=== PATIENT | male | born 1990 | race African-American/Black ===

== ENCOUNTER 2016-10-03 12:46 | Emergency (ER) | payer SELFPAY ==
--- NOTE | 2016-10-03 13:53 | ER Document Report ---
ED Medical Screen (RME) - General Chief Complaint: Numbness of Face Stated Complaint: RIGHT SIDE FACIAL NUMBNESS Time Seen by Provider: 10/03/16 13:47 Notes: Patient noted that his right face was drooping and not working yesterday after brushing his teeth. He felt that it was due to p.m. jamming the toothbrush into the sulcus between the right upper lip and maxillary region of his face. Has not been sick recently. No fevers. No insect or tick bites. Denies headache. Patient has a history of hypertension, but not currently on any medications. TRAVEL OUTSIDE OF THE [place] IN LAST 30 DAYS: No - Related Data Allergies/Adverse Reactions: shrimp Allergy (Verified 10/03/16 13:02) Past Medical History - Social History Chew tobacco use (# tins/day): No Frequency of alcohol use: Rare Drug Abuse: None Renal/ Medical History: Denies: Hx Peritoneal Dialysis Surgical Hx: Negative - Immunizations Hx Diphtheria, Pertussis, Tetanus Vaccination: No Physical Exam - Vital signs Vitals: Temp Pulse Resp BP Pulse Ox 98.1 F 100 18 207/119 H 97 10/03/16 13:03 10/03/16 13:03 10/03/16 13:03 10/03/16 13:03 10/03/16 13:03 Course - Vital Signs Vital signs: Temp Pulse Resp BP Pulse Ox 98.1 F 90 18 218/134 H 98 10/03/16 13:03 10/03/16 13:48 10/03/16 13:48 10/03/16 13:48 10/03/16 13:48
[2016-10-03] MEDS ORDERED: CLONIDINE HCL 0.2 MG TABLET PO ONE (13:54)
[2016-10-03 14:30] LABS: ABSOLUTE EOSINOPHILS # (AUTO) 0.1 10^3/uL (0.0-0.6); ABSOLUTE LYMPHOCYTES (AUTO) 1.7 10^3/uL (0.5-4.7); ABSOLUTE MONOCYTES (AUTO) 0.8 10^3/uL (0.1-1.4); ABSOLUTE NEUT (AUTO) 6.6 10^3/uL (1.7-8.2); BASOPHILS % (AUTO) 0.4 % (0-2); EOSINOPHILS % (AUTO) 1.4 % (0-6); HEMATOCRIT 40.4 % (37.9-51.0); HEMOGLOBIN 12.7 g/dL (13.5-17.0); HGB HCT DIFFERENCE -2.3; LYMPHOCYTES % (AUTO) 18.7 % (13-45); MEAN CORPUSCULAR HEMOGLOBIN 26.3 pg (27.0-33.4); MEAN CORPUSCULAR HGB CONC 31.4 g/dL (32.0-36.0); MEAN CORPUSCULAR VOLUME 84 fl (80-97); MONOCYTES % (AUTO) 8.2 % (3-13); RED BLOOD COUNT 4.83 10^6/uL (4.35-5.55); RED CELL DISTRIBUTION WIDTH 13.7 % (11.5-14.0); SEGMENTED NEUTROPHILS % (AUTO) 71.3 % (42-78); WHITE BLOOD COUNT 9.2 10^3/uL (4.0-10.5)
--- NOTE | 2016-10-03 14:43 | RADIOLOGY REPORT (SQ) ---
EXAM DESCRIPTION: CT HEAD WITHOUT COMPLETED DATE/TIME: 10/03/2016 2:20 pm REASON FOR STUDY: Right Facial paralysis COMPARISON: None. TECHNIQUE: Axial images acquired through the brain without intravenous contrast. Images reviewed wi th bone, brain and subdural windows. Images stored on PACS. All CT scanners at this facility use dose modulation, iterative reconstruction, and/or weight based d osing when appropriate to reduce radiation dose to as low as reasonably achievable (ALARA). [facility]: Dose Right [facility]: CareDose [facility]: Dose Right [facility]: Teradose 4D [facility]: [employer] RADIATION DOSE: 64.61 mGy. LIMITATIONS: None. FINDINGS: VENTRICLES: Normal size and contour. CEREBRUM: No masses. No hemorrhage. No midline shift. Normal jj/white matter differentiation. N o evidence for acute infarction. CEREBELLUM: No masses. No hemorrhage. No alteration of density. No evidence for acute infarction. EXTRAAXIAL SPACES: No fluid collections. No masses. ORBITS AND GLOBE: No intra- or extraconal masses. Normal contour of globe without masses. CALVARIUM: No fracture. PARANASAL SINUSES: There is mild mucoperiosteal thickening in the left maxillary sinus. SOFT TISSUES: No mass or hematoma. OTHER: In the temporal bone, the external auditory canals are narrow bilaterally. No specific abnorm ality involving the facial nerve canal is identified. IMPRESSION: 1. Mild left maxillary sinus disease with no acute intracranial pathology. 2. The external auditory canals are narrow. 3. No abnormality of the facial nerve canal is identified. TECHNICAL DOCUMENTATION: JOB ID: [id number] Quality ID # [id number]: Final reports with documentation of one or more dose reduction techniques (e.g., Au tomated exposure control, adjustment of the mA and/or kV according to patient size, use of iterative reconstruction technique) 2010 [employer]- All Rights Reserved
--- NOTE | 2016-10-03 14:55 | ER Document Report ---
ED General - General Chief Complaint: Numbness of Face Stated Complaint: RIGHT SIDE FACIAL NUMBNESS Time Seen by Provider: 10/03/16 13:47 Mode of Arrival: Ambulatory Information source: Patient Notes: 26-year-old man who presents to the emergency room with 2 days history of right facial weakness and numbness. Patient noticed the symptoms on waking 6 AM yesterday. Patient denies arm or leg weakness. He denies headache. He denies fever or chills. TRAVEL OUTSIDE OF THE [place] IN LAST 30 DAYS: No - HPI Onset: Yesterday Onset/Duration: Gradual Quality of pain: No pain Severity: None Pain Level: Denies Associated symptoms: denies: Chest pain, Fever, Shortness of breath Exacerbated by: Denies Relieved by: Denies Similar symptoms previously: No Recently seen / treated by doctor: No - Related Data Allergies/Adverse Reactions: shrimp Allergy (Verified 10/03/16 13:02) Past Medical History - General Information source: Patient - Social History Smoking Status: Never Smoker Cigarette use (# per day): No Chew tobacco use (# tins/day): No Frequency of alcohol use: Rare Drug Abuse: None Lives with: Family Family History: Reviewed & Not Pertinent Patient has suicidal ideation: No Patient has homicidal ideation: No - Past Medical History Cardiac Medical History: Reports: Hx Hypertension Renal/ Medical History: Denies: Hx Peritoneal Dialysis Surgical Hx: Negative - Immunizations Hx Diphtheria, Pertussis, Tetanus Vaccination: No Review of Systems - Review of Systems Constitutional: denies: Chills, Fever EENT: No symptoms reported Cardiovascular: No symptoms reported Respiratory: No symptoms reported Gastrointestinal: No symptoms reported Genitourinary: No symptoms reported Male Genitourinary: No symptoms reported Musculoskeletal: No symptoms reported Skin: No symptoms reported Hematologic/Lymphatic: No symptoms reported Neurological/Psychological: See HPI Physical Exam - Vital signs Vitals: Temp Pulse Resp BP Pulse Ox 98.1 F 100 18 207/119 H 97 10/03/16 13:03 10/03/16 13:03 10/03/16 13:03 10/03/16 13:03 10/03/16 13:03 Notes: Physical exam: GENERAL: 26-year-old man, no acute distress. HEAD: Atraumatic, normocephalic. EYES: Pupils equal round and reactive to light, extraocular movements intact, sclera anicteric, conjunctiva are normal. ENT: TMs normal, nares patent, oropharynx clear without exudates. Moist mucous membranes. NECK: Normal range of motion, supple without lymphadenopathy or JVD. LUNGS: Breath sounds clear to auscultation bilaterally and equal. No wheezes rales or rhonchi. HEART: Regular rate and rhythm without murmurs, rubs or gallops. ABDOMEN: Soft, normoactive bowel sounds. No tenderness to palpation. No guarding, no rebound. No masses appreciated. EXTREMITIES: Normal range of motion, no pitting or edema. No clubbing or cyanosis. NEUROLOGICAL: Cranial nerves: Patient has weakness and numbness to the right side of the face. No other obvious cranial nerve dysfunction. Motor 5/5, sensory grossly intact, cerebellar finger to nose good, reflexes symmetrical. Normal speech, normal gait. PSYCH: Normal mood, normal affect. SKIN: Warm, Dry, normal turgor, no rashes or lesions noted. Course - Re-evaluation Re-evalutation: Note: Patient is been comfortable. 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 Given his marked elevation in blood pressure, MRI was performed to rule out the possibility of stroke. No stroke was identified. The plan will be to treat both the Lemons's palsy and the patient's blood pressure. Patient is referred to [facility]. 10/03/16 19:15 - Vital Signs Vital signs: Temp Pulse Resp BP Pulse Ox 98.0 F 75 18 162/108 H 99 10/03/16 19:04 10/03/16 19:04 10/03/16 19:04 10/03/16 19:04 10/03/16 19:04 - Laboratory Result Diagrams: 10/03/16 14:11 10/03/16 14:11 Laboratory results interpreted by me: 10/03/16 10/03/16 14:11 14:11 Hgb 12.7 L MCH 26.3 L MCHC 31.4 L ESR 26 H BUN 21 H Creatinine 1.45 H Est GFR (Non-Af Amer) 58 L Glucose 118 H Total Protein 8.8 H - Diagnostic Test Radiology reviewed: Image reviewed, Reports reviewed - MRI shows no evidence of stroke Discharge - Discharge Clinical Impression: Lemons's palsy, Hypertension Condition: Stable Disposition: HOME, SELF-CARE Instructions: Lemons's Palsy ([facility]) Additional Instructions: Recommendations: As we discussed, the MRI does not show any evidence of stroke. His symptoms Consistent with Lemons's palsy: See the information sheet on Lemons's palsy. Sometimes, antiviral treatment is beneficial, so I have written a prescription for acyclovir 5 times daily for the next week. This can be expensive. Get some eye irritation at the Pharmacy because the plan to corneal abrasions and dry. As you elevated blood pressure: You do need to be on blood pressure medicine for the high blood pressure. I have written a prescription for lisinopril and hydrochlorothiazide. This medicine is on the $4 list at [facility]. It is important to follow-up with a primary care doctor to see if you are tolerating this blood pressure medicine. I have given you the number of [facility] which is a free clinic. Many other doctors at this hospital are clear. Return to the emergency room for any concerns or to getting worse. Prescriptions: Acyclovir 800 mg PO 5XD #35 tablet Lisinopril/Hydrochlorothiazide [Lisinopril-Hctz 10-12.5 mg Tab] 1 each PO DAILY #30 tablet Forms: Elevated Blood Pressure
[2016-10-03 14:59] LABS: ALANINE AMINOTRANSFERASE 30 U/L (21-72); ALBUMIN 4.4 g/dL (3.5-5.0); ALKALINE PHOSPHATASE 116 U/L (38-126); ANION GAP 13 (5-19); ASPARTATE AMINO TRANSFERASE 42 U/L (17-59); BILIRUBIN,DIRECT 0.4 mg/dL (0.0-0.4); BILIRUBIN,TOTAL 0.6 mg/dL (0.2-1.3); BLOOD UREA NITROGEN 21 mg/dL (7-20); CALCIUM 9.8 mg/dL (8.4-10.2); CARBON DIOXIDE 29 mmol/L (22-30); CHLORIDE 101 mmol/L (98-107); CREATININE RESULT 1.45 mg/dL (0.52-1.25); GLUCOSE 118 mg/dL (75-110); SODIUM 142.5 mmol/L (137-145); TOTAL PROTEIN 8.8 g/dL (6.3-8.2)
[2016-10-03 15:13] LABS: ERYTHROCYTE SEDIMENTATION RATE 26 mm/hr (0-15)
--- NOTE | 2016-10-03 18:06 | RADIOLOGY REPORT (SQ) ---
EXAM DESCRIPTION: MRI HEAD COMBO COMPLETED DATE/TIME: 10/03/2016 5:34 pm REASON FOR STUDY: right facial weakness COMPARISON: Brain CT scan dated 10/03/2016 TECHNIQUE: Multiplanar imaging includes noncontrasted T1, T2, FLAIR, diffusion with ADC map and post gadolinium contrast T1 sequences. Images stored on PACS. CONTRAST TYPE AND DOSE: 20 mL MultiHance RENAL FUNCTION: GFR > 60. LIMITATIONS: None. FINDINGS: ANATOMY: No anomalies. Normal vascular flow voids. Pituitary fossa normal. CSF SPACES: Normal in size and contour. No hemorrhage. CEREBRUM: Sulci and gyri normal in size and contour. There is a single focus of abnormal signal inte nsity in the periventricular white matter on the FLAIR sequence in the right parietal region. The po ssibility of a demyelinating process cannot be excluded. No evidence of hemorrhage, mass, or extraaxi al fluid collection. No abnormal enhancement post contrast. POSTERIOR FOSSA: No signal alteration. No hemorrhage. No edema, masses, or mass effect. Internal sky tory canals, cerebellopontine angles, mastoids normal. No enhancing lesions. No abnormal enhancement post contrast. DIFFUSION IMAGING: Negative for acute or subacute infarction. ORBITS: No masses. Globes normal. PARANASAL SINUSES: Mucosal thickening is identified in the left maxillary antra. OTHER: No other significant finding. IMPRESSION: There is a single focus of abnormal signal intensity in the periventricular white matter on the FLAIR sequence and right parietal region as noted above. The possibility of a demyelinating process cannot be excluded. No other significant intracranial abnormalities were identified. Other findings as noted above TECHNICAL DOCUMENTATION: JOB ID: [id number]- All Rights Reserved
[2016-10-03 19:05] VITALS: BP 162/108
[2016-10-09 07:05] LABS: LYME DISEASE IGG AND IGM AB <0.91 ISR (0.00-0.90)
== END 2016-10-03 19:10 | disposition home or self-care (01) ==
LOC: ER 12:46
DX: G51.0 Bell's palsy (principal); R20.0 Anesthesia of skin; I10 Essential (primary) hypertension; Z91.013 Allergy to seafood
CPT/HCPCS: 99284; 36415; 85025; 85652; 80053; 86618 ×2; 86617 ×2; 70553; 70450; A9577

== ENCOUNTER 2018-03-21 10:02 | Inpatient (IN) | payer SELFPAY ==
--- NOTE | 2018-03-21 10:27 | ER Document Report ---
ED Medical Screen (RME) - General Chief Complaint: Vomiting Stated Complaint: BLOOD PRESSURE ISSUE Time Seen by Provider: 03/21/18 10:18 Notes: 28-year-old obese -Malian male to the emergency department complaining of abdominal pain, constipation and nausea and vomiting as well as high blood pressure. Has not been taking his blood pressure medication for a week. Decided to go on a more vegan diet a week ago. States that he has had a bowel movement in several days and his abdomen hurts in the epigastric region. Try to have some toast but vomited. Try to drink some orange juice but vomited. Denies any chest pain but does state that his blood pressure is pretty high. Denies any severe headaches. No change in urination. No blood in the vomit. I have greeted and performed a rapid initial assessment of this patient. A comprehensive ED assessment and evaluation of the patient, analysis of test results and completion of the medical decision making process will be conducted by additional ED providers. TRAVEL OUTSIDE OF THE [place] IN LAST 30 DAYS: No - Related Data Allergies/Adverse Reactions: shrimp Allergy (Verified 03/21/18 10:24) Past Medical History - Social History Chew tobacco use (# tins/day): No Frequency of alcohol use: None Drug Abuse: None - Past Medical History Cardiac Medical History: Reports: Hx Hypertension Renal/ Medical History: Denies: Hx Peritoneal Dialysis - Immunizations Hx Diphtheria, Pertussis, Tetanus Vaccination: No Review of Systems - Review of Systems Notes: Review of systems positive for the following: Abdominal pain, nausea, vomiting, hypertension Physical Exam - Vital signs Vitals: Temp Pulse Resp BP Pulse Ox 98.1 F 109 H 20 210/146 H 98 03/21/18 10:09 03/21/18 10:09 03/21/18 10:09 03/21/18 10:09 03/21/18 10:09 Interpretation: Tachycardic - Respiratory Respiratory status: No respiratory distress Chest status: Nontender Breath sounds: Normal Chest palpation: Normal - Cardiovascular Rhythm: Tachycardia Heart sounds: Normal auscultation Murmur: No - Abdominal Inspection: Normal Distension: No distension Bowel sounds: Normal Tenderness: Tender - Mild tenderness to palpation in the epigastric region. Organomegaly: No organomegaly Course - Vital Signs Vital signs: Temp Pulse Resp BP Pulse Ox 98.1 F 109 H 20 210/146 H 98 11/17/18 10:09 03/21/18 10:09 03/21/18 10:09 03/21/18 10:09 03/21/18 10:09
[2018-03-21] MEDS ORDERED: ONDANSETRON 4 MG TAB.RAPDIS PO ONE (10:29)
[2018-03-21] MEDS ORDERED: MAGNESIUM HYDROXIDE SUSP 30 ML UDCUP PO ONE (10:29)
[2018-03-21 11:06] LABS: ABSOLUTE BASOPHILS # (AUTO) 0.1 10^3/uL (0.0-0.2); ABSOLUTE LYMPHOCYTES (AUTO) 2.2 10^3/uL (0.5-4.7); ABSOLUTE MONOCYTES (AUTO) 0.9 10^3/uL (0.1-1.4); ABSOLUTE NEUT (AUTO) 9.5 10^3/uL (1.7-8.2); BASOPHILS % (AUTO) 0.5 % (0-2); EOSINOPHILS % (AUTO) 0.4 % (0-6); HEMATOCRIT 39.8 % (37.9-51.0); HEMOGLOBIN 13.1 g/dL (13.5-17.0); LYMPHOCYTES % (AUTO) 17.4 % (13-45); MEAN CORPUSCULAR VOLUME 82 fl (80-97); MONOCYTES % (AUTO) 7.4 % (3-13); PLATELET COUNT 330 10^3/uL (150-450); RED BLOOD COUNT 4.86 10^6/uL (4.35-5.55); RED CELL DISTRIBUTION WIDTH 13.5 % (11.5-14.0); SEGMENTED NEUTROPHILS % (AUTO) 74.3 % (42-78); TOTAL CELLS COUNTED % (AUTO) 100 %; WHITE BLOOD COUNT 12.8 10^3/uL (4.0-10.5)
[2018-03-21 11:20] LABS: APPEARANCE,URINE SLIGHTLY-CLOUDY; BILIRUBIN,URINE NEGATIVE (NEGATIVE); COLOR,URINE YELLOW; GLUCOSE, URINE NEGATIVE (NEGATIVE); KETONES,URINE NEGATIVE (NEGATIVE); LEUKOCYTE ESTERASE,URINE SMALL (NEGATIVE); NITRITE,URINE NEGATIVE (NEGATIVE); PROTEIN,URINE >=500 mg/dL (NEGATIVE); URINE SPECIFIC GRAVITY 1.016; UROBILINOGEN,URINE NEGATIVE mg/dL (<2.0)
[2018-03-21 11:22] LABS: ALANINE AMINOTRANSFERASE 14 U/L (21-72); ALBUMIN 4.3 g/dL (3.5-5.0); ALKALINE PHOSPHATASE 94 U/L (38-126); ANION GAP 16 (5-19); ASPARTATE AMINO TRANSFERASE 22 U/L (17-59); BILIRUBIN,DIRECT 0.2 mg/dL (0.0-0.4); BILIRUBIN,TOTAL 0.5 mg/dL (0.2-1.3); BLOOD UREA NITROGEN 50 mg/dL (7-20); CALCIUM 9.5 mg/dL (8.4-10.2); CARBON DIOXIDE 27 mmol/L (22-30); CHLORIDE 94 mmol/L (98-107); GLUCOSE 112 mg/dL (75-110); LIPASE 63.1 U/L (23-300); SODIUM 136.5 mmol/L (137-145); TOTAL PROTEIN 7.6 g/dL (6.3-8.2)
--- NOTE | 2018-03-21 11:29 | RADIOLOGY REPORT (SQ) ---
EXAM DESCRIPTION: ACUTE ABDOMEN SERIES COMPLETED DATE/TIME: 03/21/2018 11:08 am REASON FOR STUDY: abd pain COMPARISON: None. NUMBER OF VIEWS: Three views. TECHNIQUE: Frontal chest, supine abdomen and upright/decubitus abdomen radiographic images acquired. LIMITATIONS: None. FINDINGS: CHEST: Lungs clear of infiltrates. FREE AIR: None. No abnormal gas collections. BOWEL GAS PATTERN: There is nondistended bowel and air-fluid levels about the abdomen ; gas is presen t to the descending colon. CALCIFICATIONS: No suspicious calcifications. HARDWARE: None in the abdomen. SOFT TISSUES: No gross mass or suggestion of organomegaly. BONES: No acute fracture. No worrisome bone lesions. OTHER: No other significant finding. IMPRESSION: 1. There is nondistended bowel and air-fluid levels about the abdomen; gas is present to the descending colon. There is no overt evidence of bowel obstruction although partial or developin g obstruction could have this appearance. Consider CT to further evaluate if there is high clinical concern for bowel obstruction. 2. No acute abnormality of the lungs in frontal projection. TECHNICAL DOCUMENTATION: JOB ID: [id number] [employer]- All Rights Reserved Reading location - IP/workstation name: [email or web address]
[2018-03-21] MEDS ORDERED: ASPIRIN 81 MG TABLET, CHEWABLE PO ONE (11:47)
[2018-03-21] MEDS ORDERED: NORMAL SALINE 1000 ML 1,000 ML IV ONE ×2 (11:54)
[2018-03-21] MEDS ORDERED: LABETALOL HCL INJ 20 MG/4 ML DISP.SYRIN IV ONE ×2 (12:04→14:23)
[2018-03-21] MEDS ORDERED: AMLODIPINE BESYLATE 10 MG TABLET PO ONE (12:04)
[2018-03-21] MEDS ORDERED: ONDANSETRON HCL INJ/PF 4 MG/2 ML SDV IV ONE (12:16)
--- NOTE | 2018-03-21 12:40 | RADIOLOGY REPORT (SQ) ---
EXAM DESCRIPTION: U/S RETROPERITON (RENAL/AORTA) COMPLETED DATE/TIME: 03/21/2018 12:26 pm REASON FOR STUDY: arf COMPARISON: None. TECHNIQUE: Dynamic and static grayscale images acquired of the kidneys and bladder and recorded on P ACS. Additional selected color Doppler and spectral images recorded. LIMITATIONS: Limited visualization due to overlying bowel gas and body habitus. FINDINGS: RIGHT KIDNEY: Normal size. 10.1 cm. Normal echogenicity. No solid or suspicious masses. No hydronephrosis. No calcifications. LEFT KIDNEY: Normal size. 13.6 cm. Normal echogenicity. No solid or suspicious masses. No hydronep hrosis. No calcifications. BLADDER: No masses. Unremarkable appearance of the partially distended urinary bladder. Bilateral u rinary jets are nonvisualized, possibly due to exam limitations. OTHER FINDINGS: No other significant finding. IMPRESSION: 1. Examination is limited due to overlying bowel gas and body habitus. Within this calvo itation, normal ultrasound appearance of the kidneys. No evidence of hydronephrosis. 2. Unremarkable ultrasound appearance of the partially distended urinary bladder. The bilateral uri nary jets are nonvisualized, possibly due to exam limitations. TECHNICAL DOCUMENTATION: JOB ID: [id number] [employer]- All Rights Reserved Reading location - IP/workstation name: [email or web address]
--- NOTE | 2018-03-21 14:56 | RADIOLOGY REPORT (SQ) ---
EXAM DESCRIPTION: CT ABD/PELVIS ORAL ONLY COMPLETED DATE/TIME: 03/21/2018 2:45 pm REASON FOR STUDY: eval aas possible sbo COMPARISON: Plain radiograph TECHNIQUE: CT scan of the abdomen and pelvis performed with oral contrast and no intravenous contras t. Images reviewed with lung, soft tissue, and bone windows. Reconstructed coronal and sagittal MPR i mages reviewed. All images stored on PACS. All CT scanners at this facility use dose modulation, iterative reconstruction, and/or weight based d osing when appropriate to reduce radiation dose to as low as reasonably achievable (ALARA). [facility]: Dose Right [facility]: CareDose [facility]: Dose Right [facility]: Teradose 4D [facility]: [employer] RADIATION DOSE: CT Rad equipment meets quality standard of care and radiation dose reduction techniq ues were employed. CTDIvol: 21.1 mGy. DLP: 1323 mGy-cm. mGy. LIMITATIONS: None. FINDINGS: LOWER CHEST: No significant findings. No nodules or infiltrates. NON-CONTRASTED LIVER, SPLEEN, ADRENALS: Evaluation limited by lack of IV contrast. No identified sign ificant masses. PANCREAS: No masses. No peripancreatic inflammatory changes. GALLBLADDER: No identified stones by CT criteria. No inflammatory changes to suggest cholecystitis. RIGHT KIDNEY AND URETER: No suspicious masses. Assessment limited by lack of IV contrast. No signif icant calcifications. No hydronephrosis or hydroureter. LEFT KIDNEY AND URETER: No suspicious masses. Assessment limited by lack of IV contrast. No signifi cant calcifications. No hydronephrosis or hydroureter. AORTA AND RETROPERITONEUM: No aneurysm. No retroperitoneal masses or adenopathy. BOWEL AND PERITONEAL CAVITY: Haziness in the most anterior with multiple small nodes. No evidence fo r bowel obstruction. APPENDIX: Normal. PELVIS, BLADDER, AND ABDOMINAL WALL: No abnormal pelvic masses. No abdominal wall hernias. Bladder un remarkable. BONES: No significant findings. OTHER: No other significant finding. IMPRESSION: No bowel obstruction. Mesenteritis. TECHNICAL DOCUMENTATION: JOB ID: [id number] Quality ID # [id number]: Final reports with documentation of one or more dose reduction techniques (e.g., Au tomated exposure control, adjustment of the mA and/or kV according to patient size, use of iterative reconstruction technique) 2010 [employer]- All Rights Reserved Reading location - IP/workstation name: [email or web address]
--- NOTE | 2018-03-21 15:13 | ER Document Report ---
ED General - General Chief Complaint: Vomiting Stated Complaint: BLOOD PRESSURE ISSUE Time Seen by Provider: 03/21/18 10:18 TRAVEL OUTSIDE OF THE [place] IN LAST 30 DAYS: No - HPI Patient complains to provider of: Nausea vomiting uncontrolled blood pressure Notes: Patient coming in for evaluation of nausea vomiting control blood pressure. Patient states unable to take his blood pressure medication amlodipine over the last week. Patient states also have some nausea and some vomiting. Denies any recent travel or antibiotics. Patient also complains of some diffuse abdominal pain. Denies any fevers or chills denies any diarrhea patient states minimal gas passage at this time denies any history of abdominal surgeries. Otherwise patient is resting comfortably upon my evaluation. Patient's initial triage vital signs show excessive hypertension - Related Data Allergies/Adverse Reactions: shrimp Allergy (Verified 03/21/18 10:24) Past Medical History - Social History Smoking Status: Never Smoker Chew tobacco use (# tins/day): No Frequency of alcohol use: None Drug Abuse: None Family History: Reviewed & Not Pertinent Patient has suicidal ideation: No Patient has homicidal ideation: No - Past Medical History Cardiac Medical History: Reports: Hx Hypertension Renal/ Medical History: Denies: Hx Peritoneal Dialysis - Immunizations Hx Diphtheria, Pertussis, Tetanus Vaccination: No Review of Systems - Review of Systems Constitutional: No symptoms reported EENT: No symptoms reported Cardiovascular: No symptoms reported Respiratory: No symptoms reported Gastrointestinal: Abdominal pain, Vomiting Genitourinary: No symptoms reported Male Genitourinary: No symptoms reported Musculoskeletal: No symptoms reported Skin: No symptoms reported Hematologic/Lymphatic: No symptoms reported Neurological/Psychological: No symptoms reported -: Yes All other systems reviewed and negative Physical Exam - Vital signs Vitals: Temp Pulse Resp BP Pulse Ox 98.1 F 109 H 20 210/146 H 98 03/21/18 10:09 03/21/18 10:09 03/21/18 10:09 03/21/18 10:09 03/21/18 10:09 Interpretation: Hypertensive - General General appearance: Appears well, Alert - HEENT Head: Normocephalic, Atraumatic Eyes: Normal Pupils: PERRL - Respiratory Respiratory status: No respiratory distress Chest status: Nontender Breath sounds: Normal Chest palpation: Normal - Cardiovascular Rhythm: Regular Heart sounds: Normal auscultation Murmur: No - Abdominal Inspection: Normal Distension: No distension Bowel sounds: Normal Tenderness: Tender - Diffuse tenderness Organomegaly: No organomegaly - Back Back: Normal, Nontender - Extremities General upper extremity: Normal inspection, Nontender, Normal color, Normal ROM , Normal temperature General lower extremity: Normal inspection, Nontender, Normal color, Normal ROM , Normal temperature, Normal weight bearing. No: Bernardo's sign - Neurological Neuro grossly intact: Yes Cognition: Normal Orientation: AAOx4 [place] Coma Scale Eye Opening: Spontaneous Maria Elena Coma Scale Verbal: Oriented Maria Elena Coma Scale Motor: Obeys Commands [place] Coma Scale Total: 15 Speech: Normal Motor strength normal: LUE, RUE, LLE, RLE Sensory: Normal - Psychological Associated symptoms: Normal affect, Normal mood - Skin Skin Temperature: Warm Skin Moisture: Dry Skin Color: Normal Course - Re-evaluation Re-evalutation: 03/21/18 15:11 Laboratory studies are concerning that the patient's BUN and creatinine are significantly elevated from previous times concern for possible underlying dehydration versus caused by hypertension. Patient was given IV fluids patient was given a oral dose of amlodipine also give the patient IV pushes of labetalol to help control his blood pressure. Initial acute abdominal series showed possible signs of a bowel obstruction CT scan was performed with oral contrast showing no signs of obstruction does showed mesenteritis Plan will likely be admission to the hospitalist service - Vital Signs Vital signs: Temp Pulse Resp BP Pulse Ox 98 F 109 H 17 182/128 H 98 03/21/18 13:51 03/21/18 10:09 03/21/18 15:01 03/21/18 15:01 03/21/18 15:01 - Laboratory Result Diagrams: 03/21/18 10:50 03/21/18 10:50 Laboratory results interpreted by me: 03/21/18 03/21/18 03/21/18 10:50 10:50 10:50 WBC 12.8 H Hgb 13.1 L Absolute Neutrophils 9.5 H Sodium 136.5 L Chloride 94 L BUN 50 H Creatinine 5.17 H Est GFR ( Amer) 16 L Est GFR (Non-Af Amer) 13 L Glucose 112 H ALT 14 L Creatine Kinase Urine Protein >=500 H Urine Blood SMALL H Ur Leukocyte Esterase SMALL H 03/21/18 10:50 WBC Hgb Absolute Neutrophils Sodium Chloride BUN Creatinine Est GFR ( Amer) Est GFR (Non-Af Amer) Glucose ALT Creatine Kinase 282 H Urine Protein Urine Blood Ur Leukocyte Esterase Discharge - Discharge Clinical Impression: Uncontrolled hypertension Acute renal failure Qualifiers: Acute renal failure type: unspecified Qualified Code(s): N17.9 - Acute kidney failure, unspecified Nausea & vomiting Qualifiers: Vomiting type: unspecified Vomiting Intractability: unspecified Qualified Code( s): R11.2 - Nausea with vomiting, unspecified Condition: Good Disposition: ADMITTED INPATIENT Admitting Provider: [facility] Admitted: ICU
[2018-03-21] MEDS ORDERED: ACETAMINOPHEN 325 MG TABLET PO PRN (15:55)
[2018-03-21 16:17] LABS: URINE AMPHETAMINES SCREEN NEGATIVE; URINE BARBITURATES SCREEN NEGATIVE; URINE BENZODIAZEPINES SCREEN NEGATIVE; URINE COCAINE SCREEN NEGATIVE; URINE MARIJUANA (THC) SCREEN NEGATIVE; URINE METHADONE SCREEN NEGATIVE; URINE PHENCYCLIDINE SCREEN NEGATIVE
[2018-03-21] MEDS ORDERED: NIFEDIPINE 30 MG TAB.ER.24 PO SCH (16:30)
[2018-03-21] MEDS ORDERED: HYDRALAZINE HCL INJ/PF 20 MG/1 ML SDV IV ONE (16:30)
[2018-03-21] MEDS ORDERED: ONDANSETRON HCL INJ/PF 4 MG/2 ML SDV IV PRN (16:32)
[2018-03-21] MEDS ORDERED: LACTULOSE SYRUP 20 GM/30 ML UDCUP PO ONE (16:33)
[2018-03-21] MEDS ORDERED: BISACODYL 10 MG SUPP.RECT PR ONE (16:33)
[2018-03-21] MEDS: NIFEDIPINE 30 MG TAB.ER.24 PO SCH (17:07)
--- NOTE | 2018-03-21 18:52 | HISTORY AND PHYSICAL E ---
History and Physical NAME: JOSSELIN JONES : 1990 AGE: 28Y ADMITTED: 03/21/2018 ROOM: ED18 PRIMARY CARE PROVIDER: Not established CHIEF COMPLAINT: Nausea and constipation. HISTORY OF PRESENT ILLNESS: The patient is a 28-year-old male with a past medical history of hypertension and chronic kidney disease. The patient presented to the Emergency Department with a chief complaint of nausea and vomiting. The patient states that he has not been taking any blood pressure medications. He does not have a primary care provider nor has he ever seen a ship erector. The patient denied any recent travel. No recent antibiotic use. The patient complains of some diffuse abdominal discomfort which he describes almost as gas pain which is crampy in nature. The patient states that he has been having issues with chronic constipation which has been ongoing for some time and is uncertain of his last bowel movement. The patient denies any fevers, chills, diarrhea. The patient states he has been having problems with his blood pressure for years. At times, he thought he had it controlled and then at others, he knew he was quite high. At some point in the past, the patient has been on amlodipine but has not been taking any other blood pressure management. While in the Emergency Department, the patient was noted to have a blood pressure on presentation of 210/146 with a heart rate of 90, was found to be afebrile. The patient was sent for a renal ultrasound which was limited given the patient's body habitus. CT of the abdomen and pelvis was not too remarkable for any obstructive uropathies. The patient's urine revealed gross proteinuria. However, he did have some small amount of leukocyte esterase as well as a number of WBCs. The patient himself denies any urinary symptoms. No difficulties with urination, frequency, urgency, no hematuria and so forth. Given these findings, the patient was referred to the hospitalist for admission and management. PAST MEDICAL HISTORY: Remarkable for: 1. Morbid obesity with a BMI of 45. 2. Hypertension. 3. Chronic kidney disease, appears the patient's baseline creatinine is 1.5. ALLERGIES: Include SHRIMP. HOME MEDICATIONS: None. Has taken Norvasc 10 mg p.o. daily in the past. SOCIAL HISTORY: The patient currently resides at home alone. 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 The patient's mother, Nuria, who may be reached at [phone], is his surrogate decision maker. FAMILY MEDICAL HISTORY: The patient's mother is alive. She does have severe hypertension as well. The patient's father is alive with hypertension as well. The patient does have a brother who also is hypertensive with no children. The patient and family deny any history of end stage renal disease. REVIEW OF SYSTEMS: CONSTITUTIONAL: The patient denies any fevers, chills, dizziness, weakness. No change of appetite. INTEGUMENTARY: The patient denies any diaphoresis, rashes, bruising, itching. HEENT: Denies any vision changes, hearing loss, nasal drainage, sore throat. No headaches. CARDIOVASCULAR: The patient denies any chest pain, edema, heart palpitations. RESPIRATORY: The patient denies any shortness of breath, cough, sputum production or hemoptysis. GASTROINTESTINAL: Denies any diarrhea, bloating, hematemesis. No melena, hematochezia. Does admit to nausea, an episode of vomiting, abdominal discomfort, and acute on chronic constipation. GENITOURINARY: Denied any hematuria, pyuria or dysuria. No hesitancy, frequency. Denies any urinary complaint at all. MUSCULOSKELETAL: No acute or chronic joint pain. NEUROLOGICAL: No seizures, tremors, loss of consciousness. HEMATOLOGICAL: Denies any lucia bleeding, easy bruising. ENDOCRINE: Denies any recent weight changes. PSYCHIATRIC: Denies any suicidal or homicidal ideation. The rest of the review of the other organ systems is negative. PHYSICAL EXAMINATION: GENERAL: The patient is a well-developed, morbidly obese 28-year-old male who is awake, alert, and oriented to person, place, time, situation. He is verbal, conversational, does not appear to be in any acute distress. VITAL SIGNS: As follows: Temperature 98.0, pulse 85, respirations 17, blood pressure is 199/134, oxygen saturation is 98% on room air. SKIN: Warm, dry. No rash. He is not diaphoretic. HEENT: Pupils equal, round, reactive to light and accommodation. Conjunctiva is pink. Sclera is nonicteric. Trachea is midline. NECK: Supple, no JVD. No palpable lymphadenopathy or thyromegaly. CARDIOVASCULAR: Heart is regular. There is no murmur or rub. CHEST: Clear, symmetrical, unlabored. ABDOMEN: Soft, nontender, nondistended. Bowel sounds are present. There is no palpable organomegaly. BACK: No CVA tenderness or sacral edema. EXTREMITIES: No clubbing, cyanosis, edema or peripheral signs of embolization. Pedal pulses +1 noted bilaterally. PSYCHIATRIC: Appropriate affect. Pleasant mood. DIAGNOSTICS: Lab values are as follows: Hematology obtained on 03/21/2018; WBCs are 12.8; hemoglobin is 30.1; hematocrit is 39.8; platelet count is 330,000. Chemistry obtained on 03/21/2018: Sodium is 136, potassium 4.0, chloride is 94, carbon dioxide 27, BUN 50, creatinine is 5.17, glucose 112, calcium is 9.5, bilirubin is 45, AST 22, ALT is 14, alk phos 94. CK 282. Troponin 0.075. Total protein 7.6, albumin 4.3, lipase 63.1. Urinalysis obtained on 03/21/2018: Color yellow, appearance slightly cloudy, pH 5.0, specific gravity 1.016, protein 100, glucose 88, ketones 98, occult blood small, nitrate negative, bilirubin negative, urobilinogen is negative, leukocyte esterase small, WBCs are 108, RBCs are 5, epithelial squamous cells are 2. UDS obtained on 03/21/2018: Berry negative. Urine culture obtained on 03/21/2018 is pending. Acute abdominal series obtained on 03/21/2018 reveals a nondistended bowel with air fluid levels about the abdomen. Gas is present to the descending colon. No acute abnormality of the lungs. CT of the abdomen and pelvis obtained on 03/21/2018 reveals no bowel obstruction with mesenteritis. Renal ultrasound obtained on 03/21/2018 reveals an examination that is limited by overlying bowel gas pattern as well as body habitus. IMPRESSION AND PLAN: 1. Hypertensive emergency. Upon discussion with the patient, this has been a chronic issue for him and these blood pressures are nothing new. Therefore, the patient's goal blood pressure at best is systolic 150/100. I do not want to go much lower than that to diminish cerebral perfusion. The patient is asymptomatic. No headache or blurring of vision. The patient is not confused and so forth. Therefore, we will start the patient on Procardia and add p.r.n. coverage. Will defer a drip for now because I am concerned about overcorrection given the chronicity of this issue. 2. Acute renal failure. The patient appears to have chronic kidney disease at baseline, most likely stage 3. The patient's previous creatinine a year ago was 1.7. The patient has gross proteinuria at 500 as well. We will avoid any nephrotoxic medications at this time as well as aggressively hydrate. We will consult nephrology to follow the patient. Should the patient not improve overnight, we will consider transfer for further or closer nephrology evaluation. The patient's CK is in an appropriate range. No symptoms to suggest obstructive uropathy. 3. Leukocytosis, relatively mild and may just be due to the patient's serum concentration. We will hydrate the patient. He has had no fevers. Repeat CBC in the a.m. The patient's urine is being sent for culture. He adamantly denies any urinary symptomatically. We will defer antibiotic coverage for now. 4. Morbid obesity with a BMI 45.8. Strongly encouraged weight reduction. 5. Left ventricle hypertrophy. We will go ahead and obtain echocardiogram as well; I do have a suspicion the patient also has pulmonary hypertension; and follow. 6. Hyperglycemia, relatively mild but we will add on an A1c to follow. 7. Nausea and constipation. The patient may have an acute enteritis, as the patient appears to have mesenteritis on CT scan. Will treat the patient symptomatically with antiemetics but again, will hold antibiotic coverage for now, as the patient is not febrile. DISPOSITION: The patient is a FULL CODE. Pending patient's symptomatology and diagnostic findings, will re-evaluate as needed. For the time being, we will admit the patient to inpatient IMCU as the patient's expected length of stay should surpass 2 midnights. Again, we will defer aggressive hypertension control by drip given the chronicity associated with this diagnosis. TIME SPENT: On this admission including assessment, plan, physical examination, patient education, review of previous records is 50 minutes. DICTATING PHYSICIAN: SAFIA KEE [id number] PHY#: [id number] ID: [id number] JOB#: [id number] ACCT: [id number] cc:JENISE SHAH M.D. > [facility]
[2018-03-21] MEDS: HYDRALAZINE HCL INJ/PF 20 MG/1 ML SDV IV PRN (20:39)
[2018-03-22] MEDS: NORMAL SALINE 1000 ML 1,000 ML IV PRN ×3 (02:28→19:39)
[2018-03-22] MEDS: NIFEDIPINE 30 MG TAB.ER.24 PO SCH ×2 (05:19→17:01)
[2018-03-22 08:52] LABS: ANION GAP 11 (5-19); BLOOD UREA NITROGEN 46 mg/dL (7-20); CALCIUM 8.7 mg/dL (8.4-10.2); CARBON DIOXIDE 28 mmol/L (22-30); CHLORIDE 99 mmol/L (98-107); CHOLESTEROL 166.48 mg/dL (0-200); GLUCOSE 102 mg/dL (75-110); POTASSIUM 3.4 mmol/L (3.6-5.0); SODIUM 137.7 mmol/L (137-145); TRIGLYCERIDES 159 mg/dL (<150)
[2018-03-22 09:02] LABS: DIRECT LDL 93 mg/dL (<100)
[2018-03-22 09:08] LABS: VLDL CHOLESTEROL 31.8 mg/dL (10-31)
[2018-03-22] MEDS: ASPIRIN 81 MG TABLET, CHEWABLE PO SCH (09:21)
[2018-03-22] MEDS: ENOXAPARIN SODIUM INJ 30 MG/0.3 ML DISP.SYRIN SUBCUT SCH (09:22)
[2018-03-22] MEDS ORDERED: ENOXAPARIN SODIUM INJ 40 MG/0.4 ML DISP.SYRIN SUBCUT SCH (10:00)
--- NOTE | 2018-03-22 10:45 | EKG REPORT ---
SEVERITY:- ABNORMAL ECG - SINUS RHYTHM PROBABLE LEFT ATRIAL ABNORMALITY PROBABLE LVH WITH SECONDARY REPOL ABNRM VS ISCHEMIC T WAVE CHANGES PROLONGED QT INTERVAL : Confirmed by: Rigoberto Rogers 22-Mar-2018 10:44:52
--- NOTE | 2018-03-22 10:47 | PDOC PROGRESS REPORT ---
Subjective Progress Note for:: 03/22/18 Subjective:: Doing better this AM. Denies nausea or vomiting. No chest pain, SOB, abdominal pain. Tolerating PO and eating breakfast at time of examination. No other complaints. Partner at bedside. Reason For Visit: ACUTE RENAL FAILURE Physical Exam Vital Signs: Temp Pulse Resp BP Pulse Ox 98.6 F 96 18 157/95 H 100 03/22/18 07:32 03/22/18 07:32 03/22/18 07:32 03/22/18 07:32 03/22/18 07:32 Intake & Output 03/21/18 03/22/18 03/23/18 06:59 06:59 06:59 Intake Total 2000 1000 Output Total 900 Balance 1100 1000 Weight 151.1 kg General appearance: PRESENT: no acute distress, cooperative, morbidly obese Head exam: PRESENT: atraumatic Mouth exam: PRESENT: moist Respiratory exam: PRESENT: unlabored. ABSENT: wheezes Cardiovascular exam: PRESENT: RRR GI/Abdominal exam: PRESENT: soft. ABSENT: tenderness Extremities exam: PRESENT: full ROM Neurological exam: PRESENT: alert, awake, CN II-XII grossly intact Skin exam: PRESENT: dry, intact Results Laboratory Results: 03/22/18 08:02 03/22/18 08:02 Sodium 137.7 Potassium 3.4 L Chloride 99 Carbon Dioxide 28 Anion Gap 11 BUN 46 H Creatinine 4.65 H Est GFR ( Amer) 18 L Est GFR (Non-Af Amer) 15 L Glucose 102 Calcium 8.7 Magnesium 2.8 H Triglycerides 159 H Cholesterol 166.48 LDL Cholesterol Direct 93 VLDL Cholesterol 31.8 H HDL Cholesterol 33 L Impressions: Acute Abdomen Series 03/21/18 10:29 IMPRESSION: 1. There is nondistended bowel and air-fluid levels about the abdomen; gas is present to the descending colon. There is no overt evidence of bowel obstruction although partial or developing obstruction could have this appearance. Consider CT to further evaluate if there is high clinical concern for bowel obstruction. 2. No acute abnormality of the lungs in frontal projection. Abdomen/Pelvis CT 03/21/18 11:53 IMPRESSION: No bowel obstruction. Mesenteritis. Renal Ultrasound 03/21/18 11:54 IMPRESSION: 1. Examination is limited due to overlying bowel gas and body habitus. Within this limitation, normal ultrasound appearance of the kidneys. No evidence of hydronephrosis. 2. Unremarkable ultrasound appearance of the partially distended urinary bladder. The bilateral urinary jets are nonvisualized, possibly due to exam limitations. Assessment & Plan - Diagnosis (1) Acute renal failure Qualifiers: Acute renal failure type: unspecified Qualified Code(s): N17.9 - Acute kidney failure, unspecified Is this a current diagnosis for this admission?: Yes Plan: Unclear baseline. Cr improved from 5.17 --> 4.65 on 03/22. Good UOP. Likely combination of intrinsic renal disease (from uncontrolled HTN) and pre-renal given recent N/V - Optomize BP control - No evidence of DM, A1c <5 - COntinue IVF, trend renal studies (2) Morbid obesity Is this a current diagnosis for this admission?: Yes Plan: Advised healthy diet and exercise. Patient acknowledges need to loose weight. (3) Nausea & vomiting Qualifiers: Vomiting type: unspecified Vomiting Intractability: unspecified Qualified Code(s): R11.2 - Nausea with vomiting, unspecified Is this a current diagnosis for this admission?: Yes Plan: Unclear etiology, however may have been due to constipation. - Resolved currently (4) Uncontrolled hypertension Is this a current diagnosis for this admission?: Yes Plan: Improved however remains high. - Given elevate Cr, will not start AZUCENA-i/ARB - Continue Procardia XL 90mg BID, will start Lopressor 12.5mg BID with room to increase if tolerating - PRN IV Hydralazine - Continue on secured entrance monitor for additional day - Follow up on echo results (5) Constipation Is this a current diagnosis for this admission?: Yes Plan: Improved after receiving lactulose - Increase fiber in diet - Time Time Spent with patient: Less than 15 minutes Anticipated discharge: Home Within: within 24 hours
--- NOTE | 2018-03-22 10:48 | EKG REPORT ---
SEVERITY:- ABNORMAL ECG - SINUS TACHYCARDIA CONSIDER LEFT VENTRICULAR HYPERTROPHY ABNORMAL T, PROBABLE ISCHEMIA, LATERAL LEADS PROLONGED QT INTERVAL : Confirmed by: Rigoberto Rogers 22-Mar-2018 10:47:49
--- NOTE | 2018-03-22 10:59 | XCELERA REPORT ---
[address] [address] Transthoracic Echocardiogram Report Name: JOSSELIN JONES Age: 28 yrs Gender: Male : 1990 Patient Status: Inpatient Patient Location: [place] [address]^A Study Date: 03/21/2018 05:38 PM Weight: 328 lb Procedure: A complete two-dimensional transthoracic echocardiogram was performed (2D, M-mode, spectral and color flow Doppler). The study was technically adequate with some images being suboptimal in quality. Reason For Study: Pulomonary hypertension, LVH Ordering Physician: SAFIA KEE Performed By: Viral Machuca Interpretation Summary The left ventricular ejection fraction is normal. There is moderate concentric left ventricular hypertrophy. Doppler measurements suggest pseudonormalized left ventricular relaxation, which is associated with grade II/IV or mild to moderate diastolic dysfunction The left ventricle is grossly normal size. Wall motion cannot be accurately commented on, but no definite regional wall motion abnormalities noted. The right ventricular systolic function is normal. Borderline left atrial enlargement. The right atrium is normal in size There is a trace to mild amount of mitral regurgitation There is no mitral valve stenosis. No aortic regurgitation is present. There is no aortic valve stenosis There is a trace or physiologic amount of tricuspid regurgitation Tricuspid regurgitation jet envelope not well defined to measure RV systolic pressure accurately. The aortic root is not well visualized but is probably normal size. The inferior vena cava was not well visualized Minimal pericardial effusion. MMode/2D Measurements & Calculations RVDd: 2.3 cm LVIDd: 5.5 cm FS: 36.4 % Ao root diam: 2.9 cm IVSd: 1.5 cm LVIDs: 3.5 cm EDV(Teich): 146.7 ml Ao root area: 6.4 cm2 LVPWd: 1.7 cm ESV(Teich): 50.5 ml EF(Teich): 65.6 % LVOT diam: 1.8 cm LVOT area: 2.4 cm2 Doppler Measurements & Calculations MV E max ministerio: MV dec slope: Ao V2 max: LV V1 max P.5 cm/sec 142.5 cm/sec 4.9 mmHg MV A max ministerio: 584.3 cm/sec2 Ao max PG: LV V1 max: 79.3 cm/sec MV dec time: 0.15 sec8.1 mmHg 110.7 cm/sec MV E/A: 1.1 CARMITA(V,D): 1.9 cm2 PA V2 max: TR max ministerio: 157.6 cm/sec 127.5 cm/sec PA max P.9 mmHg TR max P.5 mmHg Left Ventricle The left ventricle is grossly normal size. There is moderate concentric left ventricular hypertrophy. The left ventricular ejection fraction is normal. Doppler measurements suggest pseudonormalized left ventricular relaxation, which is associated with grade II/IV or mild to moderate diastolic dysfunction. Wall motion cannot be accurately commented on, but no definite regional wall motion abnormalities noted. Right Ventricle The right ventricle is grossly normal size. The right ventricular systolic function is normal. Atria The right atrium is normal in size. Borderline left atrial enlargement. Interarterial septum not well visualized and not well dopplered. Cannot comment on ASD/PFO presence. Mitral Valve The mitral valve leaflets are sclerotic, but show no functional abnormalities. There is no mitral valve stenosis. There is a trace to mild amount of mitral regurgitation. Aortic Valve The aortic valve is grossly normal. There is no aortic valve stenosis. No aortic regurgitation is present. Tricuspid Valve The tricuspid valve is not well visualized, but is grossly normal. There is no tricuspid stenosis. There is a trace or physiologic amount of tricuspid regurgitation. Tricuspid regurgitation jet envelope not well defined to measure RV systolic pressure accurately. Pulmonic Valve The pulmonic valve is not well visualized. Great Vessels The aortic root is not well visualized but is probably normal size. The inferior vena cava was not well visualized. Effusions Minimal pericardial effusion. : SAFIA KEE > Rigoberto Rogers
[2018-03-22] MEDS: METOPROLOL TARTRATE 25 MG TABLET PO SCH ×2 (12:34→22:32)
[2018-03-23] MEDS: NORMAL SALINE 1000 ML 1,000 ML IV PRN (02:57)
[2018-03-23 05:22] LABS: ANION GAP 13 (5-19); BLOOD UREA NITROGEN 42 mg/dL (7-20); CALCIUM 8.7 mg/dL (8.4-10.2); CARBON DIOXIDE 25 mmol/L (22-30); CHLORIDE 102 mmol/L (98-107); GLUCOSE 88 mg/dL (75-110); POTASSIUM 3.5 mmol/L (3.6-5.0); SODIUM 139.5 mmol/L (137-145)
[2018-03-23] MEDS: NIFEDIPINE 30 MG TAB.ER.24 PO SCH (06:16)
[2018-03-23] MEDS ORDERED: AMLODIPINE BESYLATE 10 MG TABLET PO SCH (10:00)
[2018-03-23 10:08] LABS: HEMATOCRIT 32.7 % (37.9-51.0); MEAN CORPUSCULAR HEMOGLOBIN 27.2 pg (27.0-33.4); MEAN CORPUSCULAR HGB CONC 33.2 g/dL (32.0-36.0); MEAN CORPUSCULAR VOLUME 82 fl (80-97); PLATELET COUNT 311 10^3/uL (150-450); RED BLOOD COUNT 3.98 10^6/uL (4.35-5.55); WHITE BLOOD COUNT 10.7 10^3/uL (4.0-10.5)
[2018-03-23 10:11] LABS: HEMOGLOBIN 10.8 g/dL (13.5-17.0)
[2018-03-23] MEDS: CARVEDILOL 12.5 MG TABLET PO SCH ×2 (10:15→21:45)
[2018-03-23] MEDS: AMLODIPINE BESYLATE 5 MG TABLET PO SCH (10:16)
[2018-03-23] MEDS: ASPIRIN 81 MG TABLET, CHEWABLE PO SCH (10:17)
[2018-03-23] MEDS: RINGERS SOLUTION,LACTATED 1,000 ML IV PRN ×2 (10:17→21:46)
[2018-03-23] MEDS: ENOXAPARIN SODIUM INJ 30 MG/0.3 ML DISP.SYRIN SUBCUT SCH (10:18)
[2018-03-23 10:30] LABS: ABSOLUTE LYMPHOCYTES# (MANUAL) 2.2 10^3/uL (0.5-4.7); ABSOLUTE MONOCYTES # (MANUAL) 0.6 10^3/uL (0.1-1.4); ABSOLUTE NEUTROPHILS# (MANUAL) 7.3 10^3/uL (1.7-8.2); BASOPHILS % (MANUAL) 2 % (0-2); EOSINOPHILS % (MANUAL) 3 % (0-6); LYMPHOCYTES % (MANUAL) 21 % (13-45); MONOCYTES % (MANUAL) 6 % (3-13); SEGMENTED NEUTROPHILS % (MAN) 68 % (42-78); TOTAL CELLS COUNTED 100
[2018-03-23 10:31] LABS: PLATELET COMMENT ADEQUATE; PLATELET LARGE PRESENT; RBC MORPHOLOGY COMMENT NORMO-CYTIC/CHROMIC
--- NOTE | 2018-03-23 11:22 | PDOC PROGRESS REPORT ---
Subjective Progress Note for:: 03/23/18 Subjective:: Mr. Thurman is a 28-year-old male with past medical history of uncontrolled hypertension and CKD baseline creatinine 1.45 on 10/2016. Patient presented to ED on 03/21/2018 complaining of nausea and vomiting associated with diffuse crampy abdominal pain. Patient takes amlodipine 10 mg for his high blood pressure however he does not have a PCP or proper medical follow-up. Patient states that he checks his blood pressure at home and usually it runs at 190s. In ED patient was found to have a blood pressure of 210/146 with a heart rate of 90 CT of abdomen and pelvis did not show any obstructive uropathy labs showed mild leukocyte esterase elevation with mild leukocytosis. Denies any urinary symptoms on admission. Initial creatinine on admission was found to be 5.7. 03/23/2018. No acute events overnight patient is very pleasant and operative on physical examination comfortably sitting in his bed and stating that he is feeling much better he had a bowel movement yesterday and he is ambulatory tolerating p.o. intake. He mentions that he takes amlodipine at home but he does not have any proper medical follow-up. Reason For Visit: ACUTE RENAL FAILURE Physical Exam Vital Signs: Temp Pulse Resp BP Pulse Ox 97.8 F 95 21 H 167/97 H 99 03/23/18 07:27 03/23/18 07:27 03/23/18 07:27 03/23/18 07:27 03/23/18 07:27 Intake & Output 03/22/18 03/23/18 03/24/18 06:59 06:59 06:59 Intake Total 2000 4919 Output Total 900 Balance 1100 4919 Weight 151.1 kg 331.7 kg General appearance: PRESENT: no acute distress, obese, well-developed, well- nourished Head exam: PRESENT: atraumatic, normocephalic Eye exam: PRESENT: conjunctiva pink, EOMI, PERRLA. ABSENT: scleral icterus Ear exam: PRESENT: normal external ear exam Mouth exam: PRESENT: moist, tongue midline Neck exam: ABSENT: carotid bruit, JVD, lymphadenopathy, thyromegaly Respiratory exam: PRESENT: clear to auscultation tu. ABSENT: rales, rhonchi, wheezes Cardiovascular exam: PRESENT: RRR. ABSENT: diastolic murmur, rubs, systolic murmur Pulses: PRESENT: normal dorsalis pedis pul Vascular exam: PRESENT: normal capillary refill GI/Abdominal exam: PRESENT: normal bowel sounds, soft. ABSENT: distended, guarding, mass, organolmegaly, rebound, tenderness Rectal exam: PRESENT: deferred Extremities exam: PRESENT: full ROM. ABSENT: calf tenderness, clubbing, pedal edema Neurological exam: PRESENT: alert, awake, oriented to person, oriented to place , oriented to time, oriented to situation, CN II-XII grossly intact. ABSENT: motor sensory deficit Psychiatric exam: PRESENT: appropriate affect, normal mood. ABSENT: homicidal ideation, suicidal ideation Skin exam: PRESENT: dry, intact, warm. ABSENT: cyanosis, rash Results Laboratory Results: 03/23/18 04:04 03/23/18 04:04 03/23/18 03/23/18 04:04 04:04 WBC 10.7 H RBC 3.98 L Hgb 10.8 L D Hct 32.7 L MCV 82 MCH 27.2 MCHC 33.2 RDW 14.0 Plt Count 311 Seg Neutrophils % Not Reportable Lymphocytes % Not Reportable Monocytes % Not Reportable Eosinophils % Not Reportable Basophils % Not Reportable Absolute Neutrophils Not Reportable Absolute Lymphocytes Not Reportable Absolute Monocytes Not Reportable Absolute Eosinophils Not Reportable Absolute Basophils Not Reportable Sodium 139.5 Potassium 3.5 L Chloride 102 Carbon Dioxide 25 Anion Gap 13 BUN 42 H Creatinine 4.66 H Est GFR ( Amer) 18 L Est GFR (Non-Af Amer) 15 L Glucose 88 Calcium 8.7 Impressions: Acute Abdomen Series 03/21/18 10:29 IMPRESSION: 1. There is nondistended bowel and air-fluid levels about the abdomen; gas is present to the descending colon. There is no overt evidence of bowel obstruction although partial or developing obstruction could have this appearance. Consider CT to further evaluate if there is high clinical concern for bowel obstruction. 2. No acute abnormality of the lungs in frontal projection. Abdomen/Pelvis CT 03/21/18 11:53 IMPRESSION: No bowel obstruction. Mesenteritis. Renal Ultrasound 03/21/18 11:54 IMPRESSION: 1. Examination is limited due to overlying bowel gas and body habitus. Within this limitation, normal ultrasound appearance of the kidneys. No evidence of hydronephrosis. 2. Unremarkable ultrasound appearance of the partially distended urinary bladder. The bilateral urinary jets are nonvisualized, possibly due to exam limitations. Assessment & Plan - Diagnosis (1) [id number] kidney injury Qualifiers: Chronic kidney disease stage: stage 3 (moderate) Is this a current diagnosis for this admission?: Yes Plan: Likely due to uncontrolled hypertension. Denies any nephrotoxic medication intake. Baseline creatinine 1.45. 10/2016 Creatinine stable and electrolytes within normal limits. Renal ultrasound not optimal to body habitus but negative for any hydronephrosis. A1c within normal limits. Switch and NS LR. Continue IV fluids, monitor electrolytes. Strict in and out. Monitor volume status. Optimize blood pressure control. Outpatient nephrology follow-up. (2) Uncontrolled hypertension Is this a current diagnosis for this admission?: Yes Plan: Uncontrolled. Euvolemic. 2D echo on 03/22/2018 normal ejection fraction with left ventricular hypertrophy. Switch metoprolol to carvedilol. Calcium channel blockers. Low-sodium diet. Avoid AZUCENA and diuretics at this point. Consider AZUCENA and diuretics once creatinine is back to baseline. (3) Constipation Qualifiers: Constipation type: drug induced constipation Qualified Code(s): K59.03 - Drug induced constipation Is this a current diagnosis for this admission?: Yes Plan: Likely due to amlodipine. Decrease amlodipine to 5 mg p.o. daily. Start on docusate 100 mg twice daily. Adjust bowel regimen of constipation continues. Advised on dietary modification. (4) Morbid obesity Is this a current diagnosis for this admission?: Yes Plan: Advised on lifestyle and diet modification. Hemoglobin A1c within normal limits. (5) Nausea & vomiting Qualifiers: Vomiting type: unspecified Vomiting Intractability: unspecified Qualified Code(s): R11.2 - Nausea with vomiting, unspecified Is this a current diagnosis for this admission?: Yes Plan: Resolved. Likely due to REJI. (6) Normocytic anemia Is this a current diagnosis for this admission?: Yes Plan: Possibly secondary to CKD. Denies any melena, hematochezia, hematemesis, hemoptysis. Stool guaiac to rule out occult GI bleeding. Iron workup, folic acid and vitamin B12 level. PTH. Outpatient nephrology follow-up
[2018-03-23 11:40] LABS: ABSOLUTE RETICS # 0.076 10^6/uL (0.028-0.122); RETICULOCYTE COUNT (AUTO) 1.88 % (0.66-2.85)
[2018-03-24] MEDS: RINGERS SOLUTION,LACTATED 1,000 ML IV PRN ×3 (06:00→19:42)
[2018-03-24 09:06] LABS: ANION GAP 8 (5-19); BLOOD UREA NITROGEN 41 mg/dL (7-20); CALCIUM 9.1 mg/dL (8.4-10.2); CARBON DIOXIDE 28 mmol/L (22-30); CHLORIDE 105 mmol/L (98-107); GLUCOSE 91 mg/dL (75-110); POTASSIUM 3.6 mmol/L (3.6-5.0); SODIUM 141.4 mmol/L (137-145)
--- NOTE | 2018-03-24 09:25 | PDOC PROGRESS REPORT ---
Subjective Progress Note for:: 03/24/18 Subjective:: Mr. Thurman is a 28-year-old male with past medical history of uncontrolled hypertension and CKD baseline creatinine 1.45 on 10/2016. Patient presented to ED on 03/21/2018 complaining of nausea and vomiting associated with diffuse crampy abdominal pain. Patient takes amlodipine 10 mg for his high blood pressure however he does not have a PCP or proper medical follow-up. Patient states that he checks his blood pressure at home and usually it runs at 190s. In ED patient was found to have a blood pressure of 210/146 with a heart rate of 90 CT of abdomen and pelvis did not show any obstructive uropathy labs showed mild leukocyte esterase elevation with mild leukocytosis. Denies any urinary symptoms on admission. Initial creatinine on admission was found to be 5.7. 03/23/2018. No acute events overnight patient is very pleasant and operative on physical examination comfortably sitting in his bed and stating that he is feeling much better he had a bowel movement yesterday and he is ambulatory tolerating p.o. intake. He mentions that he takes amlodipine at home but he does not have any proper medical follow-up. 03/24/2018. No acute events overnight. Patient states she is feeling much better and his fatigue has improved since yesterday. He is resting comfortably in his bed and very pleasant cooperative with physical examination. He is ambulatory and p.o. tolerant. Denies any fever, chills, nausea, vomiting, diarrhea, constipation or any urinary symptoms. He does mention that he has a family history of hypertension negative CAD. Reason For Visit: ACUTE RENAL FAILURE Physical Exam Vital Signs: Temp Pulse Resp BP Pulse Ox 98.0 F 87 18 156/93 H 96 03/24/18 07:58 03/24/18 07:58 03/24/18 07:58 03/24/18 07:58 03/24/18 07:58 Intake & Output 03/23/18 03/24/18 03/25/18 06:59 06:59 06:59 Intake Total 4919 4738 Output Total 3250 Balance 4919 1488 Weight 331.7 kg 151.9 kg General appearance: PRESENT: no acute distress, obese, well-developed, well- nourished Head exam: PRESENT: atraumatic, normocephalic Eye exam: PRESENT: conjunctiva pink, EOMI, PERRLA. ABSENT: scleral icterus Ear exam: PRESENT: normal external ear exam Mouth exam: PRESENT: moist, tongue midline Neck exam: ABSENT: carotid bruit, JVD, lymphadenopathy, thyromegaly Respiratory exam: PRESENT: clear to auscultation tu. ABSENT: rales, rhonchi, wheezes Cardiovascular exam: PRESENT: RRR. ABSENT: diastolic murmur, rubs, systolic murmur Pulses: PRESENT: normal dorsalis pedis pul Vascular exam: PRESENT: normal capillary refill GI/Abdominal exam: PRESENT: normal bowel sounds, soft. ABSENT: distended, guarding, mass, organolmegaly, rebound, tenderness Rectal exam: PRESENT: deferred Extremities exam: PRESENT: full ROM. ABSENT: calf tenderness, clubbing, pedal edema Neurological exam: PRESENT: alert, awake, oriented to person, oriented to place , oriented to time, oriented to situation, CN II-XII grossly intact. ABSENT: motor sensory deficit Psychiatric exam: PRESENT: appropriate affect, normal mood. ABSENT: homicidal ideation, suicidal ideation Skin exam: PRESENT: dry, intact, warm. ABSENT: cyanosis, rash Results Laboratory Results: 03/23/18 04:04 03/24/18 08:16 03/23/18 03/23/18 03/23/18 04:04 04:04 04:04 WBC 10.7 H RBC 3.98 L Hgb 10.8 L D Hct 32.7 L MCV 82 MCH 27.2 MCHC 33.2 RDW 14.0 Plt Count 311 Seg Neutrophils % Not Reportable Lymphocytes % Not Reportable Monocytes % Not Reportable Eosinophils % Not Reportable Basophils % Not Reportable Absolute Neutrophils Not Reportable Absolute Lymphocytes Not Reportable Absolute Monocytes Not Reportable Absolute Eosinophils Not Reportable Absolute Basophils Not Reportable Retic Count (auto) 1.88 Absolute Retic 0.076 Sodium Potassium Chloride Carbon Dioxide Anion Gap BUN Creatinine Est GFR ( Amer) Est GFR (Non-Af Amer) Glucose Calcium Iron 29.0 L TIBC 295 % Saturation 10 Ferritin 142.00 Vitamin B12 241.0 Folate 11.00 03/24/18 08:16 WBC RBC Hgb Hct MCV MCH MCHC RDW Plt Count Seg Neutrophils % Lymphocytes % Monocytes % Eosinophils % Basophils % Absolute Neutrophils Absolute Lymphocytes Absolute Monocytes Absolute Eosinophils Absolute Basophils Retic Count (auto) Absolute Retic Sodium 141.4 Potassium 3.6 Chloride 105 Carbon Dioxide 28 Anion Gap 8 BUN 41 H Creatinine 4.45 H Est GFR ( Amer) 19 L Est GFR (Non-Af Amer) 16 L Glucose 91 Calcium 9.1 Iron TIBC % Saturation Ferritin Vitamin B12 Folate Impressions: Acute Abdomen Series 03/21/18 10:29 IMPRESSION: 1. There is nondistended bowel and air-fluid levels about the abdomen; gas is present to the descending colon. There is no overt evidence of bowel obstruction although partial or developing obstruction could have this appearance. Consider CT to further evaluate if there is high clinical concern for bowel obstruction. 2. No acute abnormality of the lungs in frontal projection. Abdomen/Pelvis CT 03/21/18 11:53 IMPRESSION: No bowel obstruction. Mesenteritis. Renal Ultrasound 03/21/18 11:54 IMPRESSION: 1. Examination is limited due to overlying bowel gas and body habitus. Within this limitation, normal ultrasound appearance of the kidneys. No evidence of hydronephrosis. 2. Unremarkable ultrasound appearance of the partially distended urinary bladder. The bilateral urinary jets are nonvisualized, possibly due to exam limitations. Assessment & Plan - Diagnosis (1) [id number] kidney injury Qualifiers: Chronic kidney disease stage: stage 3 (moderate) Is this a current diagnosis for this admission?: Yes Plan: Likely due to uncontrolled hypertension. Denies any nephrotoxic medication intake. Baseline creatinine 1.45. 10/2016 Creatinine improving from 4.66-4.45. Electrolytes within normal limits. Renal ultrasound not optimal to body habitus but negative for any hydronephrosis. A1c within normal limits. Switched and NS LR. Continue IV fluids, monitor electrolytes. Strict in and out. Monitor volume status. Optimize blood pressure control. Outpatient nephrology follow-up. (2) Uncontrolled hypertension Is this a current diagnosis for this admission?: Yes Plan: Familial hypertension. Improving but not optimal. Euvolemic. 2D echo on 03/22/2018 normal ejection fraction with left ventricular hypertrophy. Switch metoprolol to carvedilol. Calcium channel blockers. Low-sodium diet. Avoid AZUCENA and diuretics at this point. Consider AZUCENA and diuretics once creatinine is back to baseline. (3) Constipation Qualifiers: Constipation type: drug induced constipation Qualified Code(s): K59.03 - Drug induced constipation Is this a current diagnosis for this admission?: Yes Plan: Improving. Likely due to amlodipine. Decrease amlodipine to 5 mg p.o. daily. Start on docusate 100 mg twice daily. Adjust bowel regimen of constipation continues. Advised on dietary modification. (4) Morbid obesity Is this a current diagnosis for this admission?: Yes Plan: Advised on lifestyle and diet modification. Hemoglobin A1c 4.8 on admission. (5) Nausea & vomiting Qualifiers: Vomiting type: unspecified Vomiting Intractability: unspecified Qualified Code(s): R11.2 - Nausea with vomiting, unspecified Is this a current diagnosis for this admission?: Yes Plan: Resolved. Likely due to REJI. (6) Normocytic anemia Is this a current diagnosis for this admission?: Yes Plan: Possibly combined anemia of CKD and iron deficiency anemia. Denies any melena, hematochezia, hematemesis, hemoptysis. Low iron with normal ferritin. Folic acid and vitamin B12 within normal limits. Positive stool guaiac. Consult surgery for possible endoscopy. Will start on oral ferrous sulfate. Pending PTH Monitor H&H.
[2018-03-24] MEDS: CARVEDILOL 12.5 MG TABLET PO SCH ×2 (09:54→21:33)
[2018-03-24] MEDS: ASPIRIN 81 MG TABLET, CHEWABLE PO SCH (09:54)
[2018-03-24] MEDS: ENOXAPARIN SODIUM INJ 30 MG/0.3 ML DISP.SYRIN SUBCUT SCH (09:54)
[2018-03-24] MEDS: AMLODIPINE BESYLATE 5 MG TABLET PO SCH (09:54)
[2018-03-24] MEDS: HYDRALAZINE HCL 10 MG TABLET PO SCH ×2 (15:41→17:39)
--- NOTE | 2018-03-24 20:25 | PDOC CONSULTATION ---
Consultation Consult Date: 03/24/18 Attending physician:: SUNNY RODAS Consult reason:: nausea and vomiting, abdominal pain. blood in stools History of Present Illness Admission Date/PCP: 03/21/18 16:01 History of Present Illness: JOSSELIN JONES is a 28 year old male patient admitted for nausea and vomiting along with diffuse abdominal pain CT scan negative for diverticulitis or appendicitis has been having heme positive stools patient also notes a change in his bowel habits GI consulted patient has renal insufficiency as well needs a GI work up ? etiology for his abdominal pain will rule out for possible peptic ulcer disease Past Medical History Cardiac Medical History: Reports: Hypertension Social History Smoking Status: Never Smoker Frequency of Alcohol Use: None Hx Recreational Drug Use: No Hx Prescription Drug Abuse: No - Advance Directive Resuscitation Status: Full Code Family History Family History: Reviewed & Not Pertinent Parental Family History Reviewed: Yes Children Family History Reviewed: Unknown Sibling(s) Family History Reviewed.: Unknown Medication/Allergy Home Medications: Amlodipine Besylate [Norvasc 10 mg Tablet] 10 mg PO DAILY 03/21/18 Allergies/Adverse Reactions: shrimp Allergy (Verified 03/21/18 10:24) Review of Systems Constitutional: ABSENT: fever(s), headache(s), night sweats, weakness Eyes: ABSENT: visual disturbances Nose, Mouth, and Throat: ABSENT: mouth pain, sore throat Cardiovascular: ABSENT: edema, orthropnea Respiratory: ABSENT: dyspnea, hemoptysis Gastrointestinal: PRESENT: nausea, vomiting. ABSENT: dysphagia, hematemesis, melena Genitourinary: ABSENT: dysuria, hematuria Musculoskeletal: ABSENT: joint swelling Integumentary: ABSENT: pruritus Neurological: ABSENT: syncope, tingling, tremor(s), vertigo Endocrine: ABSENT: polydipsia, polyphagia, polyuria Hematologic/Lymphatic: ABSENT: easy bruising Physical Exam Vital Signs: Temp Pulse Resp BP Pulse Ox 97.6 F 85 18 156/94 H 99 03/24/18 16:24 03/24/18 19:00 03/24/18 16:24 03/24/18 16:24 03/24/18 16:24 Intake & Output 03/23/18 03/24/18 03/25/18 06:59 06:59 06:59 Intake Total 4919 4738 2925 Output Total 3250 1550 Balance 4919 1488 1375 Weight 331.7 kg 151.9 kg 151.9 kg General appearance: PRESENT: no acute distress, well-developed, well-nourished Head exam: PRESENT: atraumatic, normocephalic Eye exam: PRESENT: EOMI, PERRLA. ABSENT: nystagmus, periorbital swelling, scleral icterus Mouth exam: PRESENT: moist, neck supple Throat exam: ABSENT: tonsillar exudate, tonsillogmegaly Respiratory exam: PRESENT: symmetrical, unlabored. ABSENT: tachypnea, wheezes Cardiovascular exam: PRESENT: RRR, +S1, +S2 GI/Abdominal exam: PRESENT: soft. ABSENT: Ramirez's sign, rebound, rigid Extremities exam: ABSENT: joint swelling Musculoskeletal exam: PRESENT: full ROM Neurological exam: PRESENT: oriented to time, oriented to situation, CN II-XII grossly intact Focused psych exam: ABSENT: restlessness Skin exam: PRESENT: normal color. ABSENT: mottled, pallor, urticaria, vesicles Results Laboratory Results: 03/23/18 04:04 03/24/18 08:16 03/24/18 03/24/18 08:16 09:50 Sodium 141.4 Potassium 3.6 Chloride 105 Carbon Dioxide 28 Anion Gap 8 BUN 41 H Creatinine 4.45 H Est GFR ( Amer) 19 L Est GFR (Non-Af Amer) 16 L Glucose 91 Calcium 9.1 Stool Occult Blood POSITIVE Impressions: Acute Abdomen Series 03/21/18 10:29 IMPRESSION: 1. There is nondistended bowel and air-fluid levels about the abdomen; gas is present to the descending colon. There is no overt evidence of bowel obstruction although partial or developing obstruction could have this appearance. Consider CT to further evaluate if there is high clinical concern for bowel obstruction. 2. No acute abnormality of the lungs in frontal projection. Abdomen/Pelvis CT 03/21/18 11:53 IMPRESSION: No bowel obstruction. Mesenteritis. Renal Ultrasound 03/21/18 11:54 IMPRESSION: 1. Examination is limited due to overlying bowel gas and body habitus. Within this limitation, normal ultrasound appearance of the kidneys. No evidence of hydronephrosis. 2. Unremarkable ultrasound appearance of the partially distended urinary bladder. The bilateral urinary jets are nonvisualized, possibly due to exam limitations. Assessment & Plan - Diagnosis (1) Heme positive stool Plan: ? possible source will need GI work up (2) Constipation Qualifiers: Constipation type: drug induced constipation Qualified Code(s): K59.03 - Drug induced constipation Is this a current diagnosis for this admission?: Yes Plan: will need colonoscopy, a change in his bowel habits could be hemorrhoids however other etiology needs to be excluded (3) Nausea & vomiting Qualifiers: Vomiting type: unspecified Vomiting Intractability: unspecified Qualified Code(s): R11.2 - Nausea with vomiting, unspecified Is this a current diagnosis for this admission?: Yes Plan: will proceed with EGD as well could have peptic ulcer disease will schedule for patient he would prefer Propofol sedation - Time Time Spent: 50 to 70 Minutes
[2018-03-24] MEDS ORDERED: PEG 3350/NA SULF,BICARB,CL/KCL 4000 ML PO ONE (21:15)
[2018-03-25] MEDS: RINGERS SOLUTION,LACTATED 1,000 ML IV PRN ×3 (03:59→17:31)
[2018-03-25] MEDS: HYDRALAZINE HCL 10 MG TABLET PO SCH (05:26)
[2018-03-25 06:38] LABS: ABSOLUTE BASOPHILS # (AUTO) 0.1 10^3/uL (0.0-0.2); ABSOLUTE EOSINOPHILS # (AUTO) 0.3 10^3/uL (0.0-0.6); ABSOLUTE LYMPHOCYTES (AUTO) 2.6 10^3/uL (0.5-4.7); ABSOLUTE MONOCYTES (AUTO) 0.8 10^3/uL (0.1-1.4); ABSOLUTE NEUT (AUTO) 6.6 10^3/uL (1.7-8.2); BASOPHILS % (AUTO) 1.1 % (0-2); EOSINOPHILS % (AUTO) 3.2 % (0-6); HEMATOCRIT 35.9 % (37.9-51.0); HEMOGLOBIN 11.8 g/dL (13.5-17.0); LYMPHOCYTES % (AUTO) 24.9 % (13-45); MEAN CORPUSCULAR HEMOGLOBIN 27.2 pg (27.0-33.4); MEAN CORPUSCULAR HGB CONC 32.9 g/dL (32.0-36.0); MEAN CORPUSCULAR VOLUME 83 fl (80-97); MONOCYTES % (AUTO) 7.6 % (3-13); PLATELET COUNT 380 10^3/uL (150-450); RED BLOOD COUNT 4.35 10^6/uL (4.35-5.55); RED CELL DISTRIBUTION WIDTH 14.2 % (11.5-14.0); SEGMENTED NEUTROPHILS % (AUTO) 63.2 % (42-78); TOTAL CELLS COUNTED % (AUTO) 100 %; WHITE BLOOD COUNT 10.5 10^3/uL (4.0-10.5)
[2018-03-25 06:54] LABS: ALANINE AMINOTRANSFERASE 26 U/L (21-72); ALBUMIN 4.1 g/dL (3.5-5.0); ALKALINE PHOSPHATASE 87 U/L (38-126); ANION GAP 15 (5-19); ASPARTATE AMINO TRANSFERASE 29 U/L (17-59); BILIRUBIN,DIRECT 0.2 mg/dL (0.0-0.4); BILIRUBIN,TOTAL 0.4 mg/dL (0.2-1.3); BLOOD UREA NITROGEN 40 mg/dL (7-20); CALCIUM 9.8 mg/dL (8.4-10.2); CARBON DIOXIDE 28 mmol/L (22-30); CHLORIDE 100 mmol/L (98-107); GLUCOSE 85 mg/dL (75-110); POTASSIUM 3.7 mmol/L (3.6-5.0); SODIUM 143.4 mmol/L (137-145); TOTAL PROTEIN 7.5 g/dL (6.3-8.2)
[2018-03-25] MEDS: ENOXAPARIN SODIUM INJ 30 MG/0.3 ML DISP.SYRIN SUBCUT SCH (09:14)
[2018-03-25] MEDS: ASPIRIN 81 MG TABLET, CHEWABLE PO SCH (09:14)
[2018-03-25] MEDS: CARVEDILOL 12.5 MG TABLET PO SCH ×2 (09:20→21:14)
[2018-03-25] MEDS: FERROUS SULFATE 325 MG TABLET PO SCH (09:21)
[2018-03-25] MEDS: AMLODIPINE BESYLATE 5 MG TABLET PO SCH (09:21)
--- NOTE | 2018-03-25 10:23 | PDOC PROGRESS REPORT ---
Subjective Progress Note for:: 03/25/18 Subjective:: Mr. Thurman is a 28-year-old male with past medical history of uncontrolled hypertension and CKD baseline creatinine 1.45 on 10/2016. Patient presented to ED on 03/21/2018 complaining of nausea and vomiting associated with diffuse crampy abdominal pain. Patient takes amlodipine 10 mg for his high blood pressure however he does not have a PCP or proper medical follow-up. Patient states that he checks his blood pressure at home and usually it runs at 190s. In ED patient was found to have a blood pressure of 210/146 with a heart rate of 90 CT of abdomen and pelvis did not show any obstructive uropathy labs showed mild leukocyte esterase elevation with mild leukocytosis. Denies any urinary symptoms on admission. Initial creatinine on admission was found to be 5.7. 03/23/2018. No acute events overnight patient is very pleasant and operative on physical examination comfortably sitting in his bed and stating that he is feeling much better he had a bowel movement yesterday and he is ambulatory tolerating p.o. intake. He mentions that he takes amlodipine at home but he does not have any proper medical follow-up. 03/24/2018. No acute events overnight. Patient states she is feeling much better and his fatigue has improved since yesterday. He is resting comfortably in his bed and very pleasant cooperative with physical examination. He is ambulatory and p.o. tolerant. Denies any fever, chills, nausea, vomiting, diarrhea, constipation or any urinary symptoms. He does mention that he has a family history of hypertension negative CAD. 03/25/2018. No acute events overnight. Patient stated he could not get enough sleep because of the fact that he was drinking the bowel prep. Otherwise he has been doing well and ambulating and tolerating his p.o. intakes. Not having any melena or hematochezia. Reason For Visit: ACUTE RENAL FAILURE Physical Exam Vital Signs: Temp Pulse Resp BP Pulse Ox 97.9 F 81 17 163/99 H 100 03/25/18 07:32 03/25/18 07:32 03/25/18 07:32 03/25/18 07:32 03/25/18 07:32 Intake & Output 03/24/18 03/25/18 03/26/18 06:59 06:59 06:59 Intake Total 4738 7925 Output Total 3863 1577 Balance 1488 2050 Weight 151.9 kg 153.2 kg General appearance: PRESENT: no acute distress, morbidly obese Respiratory exam: PRESENT: clear to auscultation tu. ABSENT: rales, rhonchi, wheezes Cardiovascular exam: PRESENT: RRR. ABSENT: diastolic murmur, rubs, systolic murmur Pulses: PRESENT: normal dorsalis pedis pul GI/Abdominal exam: PRESENT: normal bowel sounds, soft. ABSENT: distended, guarding, mass, organolmegaly, rebound, tenderness Results Laboratory Results: 03/25/18 06:12 03/25/18 06:12 03/24/18 03/25/18 03/25/18 09:50 06:12 06:12 WBC 10.5 RBC 4.35 Hgb 11.8 L Hct 35.9 L MCV 83 MCH 27.2 MCHC 32.9 RDW 14.2 H Plt Count 380 Seg Neutrophils % 63.2 Lymphocytes % 24.9 Monocytes % 7.6 Eosinophils % 3.2 Basophils % 1.1 Absolute Neutrophils 6.6 Absolute Lymphocytes 2.6 Absolute Monocytes 0.8 Absolute Eosinophils 0.3 Absolute Basophils 0.1 Sodium 143.4 Potassium 3.7 Chloride 100 Carbon Dioxide 28 Anion Gap 15 BUN 40 H Creatinine 4.84 H Est GFR ( Amer) 17 L Est GFR (Non-Af Amer) 14 L Glucose 85 Calcium 9.8 Total Bilirubin 0.4 AST 29 ALT 26 Alkaline Phosphatase 87 Total Protein 7.5 Albumin 4.1 Stool Occult Blood POSITIVE Impressions: Acute Abdomen Series 03/21/18 10:29 IMPRESSION: 1. There is nondistended bowel and air-fluid levels about the abdomen; gas is present to the descending colon. There is no overt evidence of bowel obstruction although partial or developing obstruction could have this appearance. Consider CT to further evaluate if there is high clinical concern for bowel obstruction. 2. No acute abnormality of the lungs in frontal projection. Abdomen/Pelvis CT 03/21/18 11:53 IMPRESSION: No bowel obstruction. Mesenteritis. Renal Ultrasound 03/21/18 11:54 IMPRESSION: 1. Examination is limited due to overlying bowel gas and body habitus. Within this limitation, normal ultrasound appearance of the kidneys. No evidence of hydronephrosis. 2. Unremarkable ultrasound appearance of the partially distended urinary bladder. The bilateral urinary jets are nonvisualized, possibly due to exam limitations. Assessment & Plan - Diagnosis (1) [id number] kidney injury Is this a current diagnosis for this admission?: Yes Plan: Likely due to uncontrolled hypertension. Denies any nephrotoxic medication intake. Baseline creatinine 1.45. 10/2016 Creatinine stable 4.45-4.80. Electrolytes within normal limits. Renal ultrasound not optimal to body habitus but negative for any hydronephrosis. A1c within normal limits. Switched and NS LR. Continue IV fluids, monitor electrolytes. Strict in and out. Monitor volume status. Optimize blood pressure control. Nephrology consulted. (2) Uncontrolled hypertension Is this a current diagnosis for this admission?: Yes Plan: Familial hypertension. Improving but not optimal. Euvolemic. 2D echo on 03/22/2018 normal ejection fraction with left ventricular hypertrophy. Switch metoprolol to carvedilol. Calcium channel blockers. Start on hydralazine. Low-sodium diet. Avoid AZUCENA and diuretics at this point. Consider AZUCENA and diuretics once creatinine is back to baseline. (3) Constipation Qualifiers: Qualified Code(s): K59.03 - Drug induced constipation Is this a current diagnosis for this admission?: Yes Plan: Resolved. Likely due to amlodipine. Decrease amlodipine to 5 mg p.o. daily. Start on docusate 100 mg twice daily. Adjust bowel regimen of constipation continues. Advised on dietary modification. (4) Morbid obesity Is this a current diagnosis for this admission?: Yes Plan: Advised on lifestyle and diet modification. Hemoglobin A1c 4.8 on admission. (5) Nausea & vomiting Qualifiers: Qualified Code(s): R11.2 - Nausea with vomiting, unspecified Is this a current diagnosis for this admission?: Yes Plan: Resolved. Likely due to REJI. (6) Normocytic anemia Is this a current diagnosis for this admission?: Yes Plan: Possibly combined anemia of CKD and iron deficiency anemia. Denies any melena, hematochezia, hematemesis, hemoptysis. Low iron with normal ferritin, folic acid and vitamin B12 levels. Positive stool guaiac. GI on board. Pending upper GI endoscopy. Continue oral ferrous sulfate. Pending PTH Monitor H&H.
--- NOTE | 2018-03-25 10:26 | PDOC CONSULTATION ---
Consultation Consult Date: 03/25/18 Attending physician:: SURESH NEUMANN Consult reason:: I was asked to see the patient because of renal failure. History of Present Illness Admission Date/PCP: 03/21/18 16:01 History of Present Illness: JOSSELIN JONES is a 28 year old -[place] male who was admitted on February 18 presenting with nausea, vomiting and diffuse abdominal pain. Patient was also noted to be constipated. Patient was seen by 3d designer Dr. Beavers. On presentation he also has very elevated blood pressure of 210/146. He has elevated BUN of 50, creatinine 5.17 with an estimated GFR of 16. Today he has a BUN of 40, creatinine 4.84, and estimated GFR 17. On October 2016 he had a blood work here in the hospital which showed a BUN of 21, creatinine of 1.45 with estimated GFR of greater than 60. Patient was started on some IV fluids and his blood pressure medications are initiated to control the blood pressure. Currently the blood pressure is slowly improving as appropriate. Patient does not regularly see any physician. He told me that he is aware that he probably has high blood pressure since he has blurring of vision. About a month ago he went to the eye doctor because of blurry vision and his blood pressure was noted to be around 170/100 according to the mother who is at bedside. His and aunt are also at bedside during this interview. Mother said that she gave him her amlodipine which he took for a couple of days. 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 Patient denies any known kidney problems that he is aware of. He denies any history of kidney stones. He denies any history of hepatitis nor HIV infection. He takes ibuprofen maybe once a week. Currently is nausea, vomiting and abdominal pain is resolved and he is not complaining of any symptoms at all. He denies any urination problem except for nocturia which he admits his gets up 3 times a night. He denies any gross hematuria or foamy urine. His urinalysis showed proteinuria of greater than or equal to 500 with small blood. Urine culture shows contaminants with viridans strep to coccus. Patient states that he drinks a lot of fluids and eats mostly chicken. He had a kidney ultrasound done upon admission which showed a right kidney measuring at 10.1 cm, left kidney at 13.6 cm without any hydronephrosis or other significant findings. He also has some mild anemia. 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 Lives with: Family Smoking Status: Never Smoker Frequency of Alcohol Use: Occasional Hx Recreational Drug Use: No Hx Prescription Drug Abuse: No - Advance Directive Resuscitation Status: Full Code Family History Family History: CAD - Maternal grandmother, DM - Maternal grandmother, Hypertension - Mother and father Parental Family History Reviewed: Yes Children Family History Reviewed: NA Sibling(s) Family History Reviewed.: Yes Medication/Allergy Home Medications: Amlodipine Besylate [Norvasc 10 mg Tablet] 10 mg PO DAILY 03/21/18 Allergies/Adverse Reactions: shrimp Allergy (Verified 03/21/18 10:24) Review of Systems All systems: reviewed and no additional remarkable complaints except as stated Review of Systems: Constitutional: ABSENT: chills, fatigue, fever(s), headache(s), weight gain, weight loss Eyes: ABSENT: visual disturbances Ears: ABSENT: hearing changes Cardiovascular: ABSENT: chest pain, dyspnea on exertion, edema, orthropnea, palpitations Respiratory: ABSENT: cough, dyspnea, hemoptysis Gastrointestinal: ABSENT: Diarrhea, hematemesis, hematochezia: On presentation admits nausea, vomiting, abdominal pain and constipation Genitourinary: ABSENT: dysuria, hematuria; admits nocturia Musculoskeletal: ABSENT: joint swelling Integumentary: ABSENT: rash, wounds Neurological: ABSENT: abnormal gait, abnormal speech, confusion, dizziness, focal weakness, numbness, syncope Psychiatric: ABSENT: anxiety, depression Endocrine: ABSENT: cold intolerance, heat intolerance, polydipsia, polyuria Hematologic/Lymphatic: ABSENT: easy bleeding, easy bruising, lymphadenopathy Physical Exam Vital Signs: Temp Pulse Resp BP Pulse Ox 97.9 F 81 17 163/99 H 100 03/25/18 07:32 03/25/18 07:32 03/25/18 07:32 03/25/18 07:32 03/25/18 07:32 Intake & Output 03/24/18 03/25/18 03/26/18 06:59 06:59 06:59 Intake Total 4738 7925 Output Total 7227 4857 Balance 1488 6372 Weight 151.9 kg 153.2 kg Exam: General appearance: No acute distress, cooperative, well-developed, well- nourished Head exam: PRESENT: atraumatic, normocephalic Eye exam: PRESENT: Conjunctiva [place], EOMI, PERRLA. ABSENT: conjunctival injection, scleral icterus Mouth exam: PRESENT: moist, neck supple, tongue midline Neck exam: PRESENT: full ROM. ABSENT: carotid bruit, JVD, lymphadenopathy, thyromegaly Respiratory exam: PRESENT: clear to auscultation bilaterally. ABSENT: rales, rhonchi, stridor, wheezes Cardiovascular exam: PRESENT: RRR, +S1, +S2. ABSENT: systolic murmur Pulses: PRESENT: normal radial pulses, normal dorsalis pedis pulses GI/Abdominal exam: PRESENT: normal bowel sounds, soft. ABSENT: guarding, mass, tenderness Rectal exam: Deferred Extremities exam: PRESENT: full ROM. ABSENT: calf tenderness, pedal edema Musculoskeletal: PRESENT: full ROM. ABSENT: deformity Neurological exam: PRESENT: alert, Awake, Oriented to person, Oriented to place , Oriented to time, reflexes normal, CN II-XII grossly intact. ABSENT: motor sensory deficit Psychiatric exam: PRESENT: appropriate affect, normal mood. ABSENT: homicidal ideation, suicidal ideation Skin exam: PRESENT: intact, dry, warm. ABSENT: rash Results Laboratory Results: 03/25/18 06:12 03/25/18 06:12 03/24/18 03/25/18 03/25/18 09:50 06:12 06:12 WBC 10.5 RBC 4.35 Hgb 11.8 L Hct 35.9 L MCV 83 MCH 27.2 MCHC 32.9 RDW 14.2 H Plt Count 380 Seg Neutrophils % 63.2 Lymphocytes % 24.9 Monocytes % 7.6 Eosinophils % 3.2 Basophils % 1.1 Absolute Neutrophils 6.6 Absolute Lymphocytes 2.6 Absolute Monocytes 0.8 Absolute Eosinophils 0.3 Absolute Basophils 0.1 Sodium 143.4 Potassium 3.7 Chloride 100 Carbon Dioxide 28 Anion Gap 15 BUN 40 H Creatinine 4.84 H Est GFR ( Amer) 17 L Est GFR (Non-Af Amer) 14 L Glucose 85 Calcium 9.8 Total Bilirubin 0.4 AST 29 ALT 26 Alkaline Phosphatase 87 Total Protein 7.5 Albumin 4.1 Stool Occult Blood POSITIVE Impressions: Acute Abdomen Series 03/21/18 10:29 IMPRESSION: 1. There is nondistended bowel and air-fluid levels about the abdomen; gas is present to the descending colon. There is no overt evidence of bowel obstruction although partial or developing obstruction could have this appearance. Consider CT to further evaluate if there is high clinical concern for bowel obstruction. 2. No acute abnormality of the lungs in frontal projection. Abdomen/Pelvis CT 03/21/18 11:53 IMPRESSION: No bowel obstruction. Mesenteritis. Renal Ultrasound 03/21/18 11:54 IMPRESSION: 1. Examination is limited due to overlying bowel gas and body habitus. Within this limitation, normal ultrasound appearance of the kidneys. No evidence of hydronephrosis. 2. Unremarkable ultrasound appearance of the partially distended urinary bladder. The bilateral urinary jets are nonvisualized, possibly due to exam limitations. Assessment & Plan - Diagnosis (1) Acute kidney injury superimposed on chronic kidney disease Is this a current diagnosis for this admission?: Yes Plan: Unknown baseline kidney function. Patient is nonoliguric. Because of acute worsening most likely secondary to hypertensive urgency. Kidney function has been unchanged since admission. No other electrolyte abnormalities. No indication for renal replacement therapy. Avoid nephrotoxic medications. Continue to monitor kidney function to see if we can establish his baseline. (2) Chronic kidney disease (CKD) Is this a current diagnosis for this admission?: Yes Plan: Secondary to hypertensive nephrosclerosis with proteinuria. Again we do not know his baseline kidney function at this time. We have to follow his kidney function in time to determine what stage of chronic kidney disease he is in. Discussed this diagnosis along with the patient and his family at bedside. Discussed the course of the disease ending to end-stage renal disease requiring dialysis treatments at one point in the future. Discussed complications of kidney disease. To slow down progression of the kidney disease I recommend that the patient's blood pressure to be adequately controlled slowly in time, avoid nephrotoxic medications including NSAIDs, need for adequate fluid intake, low protein diet, and periodic follow-up with a electronics hardware design engineer. I would be happy to follow him up as an outpatient if you wishes. For further workup I am going to check his phosphorus, intact PTH, urine protein to creatinine ratio, and serum protein electrophoresis. (3) Proteinuria Qualifiers: Proteinuria type: persistent Qualified Code(s): R80.1 - Persistent proteinuria, unspecified Is this a current diagnosis for this admission?: Yes Plan: We will check and try to quantify his proteinuria by doing urine protein to creatinine ratio. (4) Uncontrolled hypertension Is this a current diagnosis for this admission?: Yes Plan: Agree with current medication regimen for blood pressure. At this level of kidney function I would hold off on any AZUCENA or ARB's. Agree with controlling the blood pressure slowly as being done currently. Due to asymmetric kidney sizes I am going to check the patient for renal artery stenosis and get a duplex of renal arteries while in the hospital. (5) Anemia in chronic kidney disease (CKD) Is this a current diagnosis for this admission?: Yes Plan: Currently does not need any Procrit yet. (6) Iron deficiency anemia Is this a current diagnosis for this admission?: Yes Plan: The probably benefit for oral ferrous sulfate but will hold it until GI evaluation. (7) Constipation Qualifiers: Constipation type: drug induced constipation Qualified Code(s): K59.03 - Drug induced constipation Is this a current diagnosis for this admission?: Yes (8) Heme positive stool Is this a current diagnosis for this admission?: Yes Plan: GI consulted. (9) Nausea & vomiting Qualifiers: Vomiting type: unspecified Vomiting Intractability: unspecified Qualified Code(s): R11.2 - Nausea with vomiting, unspecified Is this a current diagnosis for this admission?: Yes Plan: Improved and resolved. (10) Morbid obesity Is this a current diagnosis for this admission?: Yes - Notes Notes: Thank you very much for this consultation. Discussed assessment and plan with the patient and his family at bedside. I do not think the patient needs to stay here in the hospital trying to establish what his baseline kidney function is. As long as his kidney function is stable we can recheck his kidney function as an outpatient. If he gets discharged he will be happy to assist the patient in the office in the next 2-3 weeks with repeat BMP. - Time Time Spent: Greater than 70 Minutes
[2018-03-25] MEDS ORDERED: DEXAMETHASONE SOD PHOSPHATE INJ 4 MG/1 ML VIAL ONE (12:01)
[2018-03-25] MEDS ORDERED: GLYCOPYRROLATE 1 MG/5 ML SYRINGE ONE (12:01)
[2018-03-25] MEDS ORDERED: ONDANSETRON HCL INJ/PF 4 MG/2 ML SDV ONE (12:23)
[2018-03-25] MEDS ORDERED: LIDOCAINE 2% INJ-PF (20 MG/ML) 10 ML AMPUL ONE (12:23)
[2018-03-25] MEDS ORDERED: PROPOFOL INJ 200 MG/20 ML VIAL IV ONE (12:23)
[2018-03-25] MEDS ORDERED: MEPERIDINE HCL/PF INJ 25 MG/1 ML DISP.SYRIN IV PRN (13:04)
[2018-03-25] MEDS ORDERED: FENTANYL CITRATE INJ/PF 100 MCG/2 ML AMPUL IV PRN ×3 (13:04)
[2018-03-25] MEDS ORDERED: DIPHENHYDRAMINE HCL 50 MG/ML VIAL IV PRN (13:04)
[2018-03-25] MEDS ORDERED: ONDANSETRON HCL INJ/PF 4 MG/2 ML SDV IV PRN (13:04)
[2018-03-25] MEDS ORDERED: PROMETHAZINE HCL INJ 25 MG/1 ML VIAL IV PRN ×2 (13:04)
--- NOTE | 2018-03-25 15:56 | Operative Report ---
Operative Report DATE OF SURGERY: 03/25/18 Operative Report: The risks, benefits and alternatives of the procedure including the risk of bleeding, perforation requiring surgery are explained to the patient in detail and informed consent is obtained. Patient is brought back to the operating room and placed in the left, lateral decubital position. Timeout was called. Propofol medication is administered. A rectal examination is done which did not reveal any masses, tears or fissures. An Olympus videoscope was introduced into the patient's rectum. The scope was then carefully advanced all the way to the cecum. The cecum was identified by the usual anatomical landmarks of the ileocecal valve as well as the appendiceal office. Photodocumentation is obtained. Prep was good. The scope was then sequentially pulled back via the various segments of the colon including the ascending colon, hepatic flexure, transverse colon, splenic flexure, descending colon and finally into the rectosigmoid portions of the colon. Retroflexion maneuver was performed. The risks benefits and alternatives of the procedure explained to the patient in detail and informed consent is obtained.A GIF Olympus video scope was inserted into the patient's mouth and hypopharynx, the esophagus is identified intubated and insufflated, the scope was then advanced through the esophagus stomach and duodenum, retroflexion maneuver is done the esophagus stomach and first and second portions of the duodenum examined PREOPERATIVE DIAGNOSIS: Nausea vomiting. Change in bowel habits. Heme positive stools POSTOPERATIVE DIAGNOSIS: Gastritis status post biopsy. No active bleeding noted. No gastric outlet obstruction. Right colon inflammation status post biopsy. Internal hemorrhoids. Diverticulosis OPERATION: Colonoscopy with biopsy. EGD with biopsy SURGEON: SUNNY RODAS ANESTHESIA: LMAC TISSUE REMOVED OR ALTERED: As noted above. COMPLICATIONS: None. ESTIMATED BLOOD LOSS: None. INTRAOPERATIVE FINDINGS: As noted above. PROCEDURE: Patient tolerated procedure well. No immediate postprocedure consultations are noted. Patient is sent back to his room in good condition. Follow-up on biopsies. Resume regular diet Resume previous activity level Resume medications Follow-up as outpatient
[2018-03-25 17:01] LABS: ANION GAP 14 (5-19); BLOOD UREA NITROGEN 40 mg/dL (7-20); CALCIUM 9.6 mg/dL (8.4-10.2); CARBON DIOXIDE 29 mmol/L (22-30); CHLORIDE 100 mmol/L (98-107); GLUCOSE 116 mg/dL (75-110); POTASSIUM 4.1 mmol/L (3.6-5.0); SODIUM 143.1 mmol/L (137-145)
[2018-03-25] MEDS: HYDRALAZINE HCL 25 MG TABLET PO SCH (17:30)
[2018-03-25 17:36] LABS: UR PRO/CREAT RATIO RESULT 2.3 mg/mg (0.0-0.2); URINE CREATININE 43.5 mg/dL (24-392); URINE PROTEIN 98.5 mg/dL (<12)
[2018-03-26] MEDS: RINGERS SOLUTION,LACTATED 1,000 ML IV PRN ×2 (01:19→12:19)
[2018-03-26] MEDS: HYDRALAZINE HCL INJ/PF 20 MG/1 ML SDV IV PRN (03:27)
[2018-03-26] MEDS: HYDRALAZINE HCL 25 MG TABLET PO SCH ×3 (05:17→21:49)
--- NOTE | 2018-03-26 07:24 | RADIOLOGY REPORT (SQ) ---
EXAM DESCRIPTION: US PROCEDURE NOT MAPPED WAITING ON RADLEX COMPLETED DATE/TME: 03/26/2018 00:00 CLINICAL HISTORY: 28 years Male, REJI/CKD/HTN R/O Renal artery stenosis Comparison:03/21/2018 Technique: Multiple sonographic images of the kidneys and bladder were assessed for jj scale appearance and color doppler flow. LIMITATIONS: None. Findings: The right kidney measures 11.2 cm in length. It is normal in echotexture and demonstrates no evidence of hydronephrosis. The peak systolic velocity is 81 cm/sec and the renal artery to aortic ratio is 0.98 (< 3.5 is normal). The left kidney measures 13.4 cm in length. It is normal in echotexture and demonstrate no evidence of hydronephrosis. The peak systolic velocity is 52 cm/sec and the renal artery to aortic ratio is 0.6. Impression: 1. Normal renal ultrasound. 2. Low probability of renal artery stenosis.
[2018-03-26 07:51] LABS: ABSOLUTE BASOPHILS # (AUTO) 0.1 10^3/uL (0.0-0.2); ABSOLUTE LYMPHOCYTES (AUTO) 1.4 10^3/uL (0.5-4.7); ABSOLUTE MONOCYTES (AUTO) 0.8 10^3/uL (0.1-1.4); ABSOLUTE NEUT (AUTO) 10.8 10^3/uL (1.7-8.2); BASOPHILS % (AUTO) 0.7 % (0-2); HEMOGLOBIN 11.1 g/dL (13.5-17.0); MEAN CORPUSCULAR HEMOGLOBIN 26.9 pg (27.0-33.4); MEAN CORPUSCULAR HGB CONC 32.5 g/dL (32.0-36.0); MEAN CORPUSCULAR VOLUME 83 fl (80-97); MONOCYTES % (AUTO) 6.4 % (3-13); PLATELET COUNT 462 10^3/uL (150-450); RED BLOOD COUNT 4.11 10^6/uL (4.35-5.55); RED CELL DISTRIBUTION WIDTH 13.8 % (11.5-14.0); SEGMENTED NEUTROPHILS % (AUTO) 81.9 % (42-78); TOTAL CELLS COUNTED % (AUTO) 100 %; WHITE BLOOD COUNT 13.2 10^3/uL (4.0-10.5)
--- NOTE | 2018-03-26 09:38 | EKG REPORT ---
SEVERITY:- ABNORMAL ECG - SINUS RHYTHM VENTRICULAR PREMATURE COMPLEX CONSIDER LEFT VENTRICULAR HYPERTROPHY ABNORMAL T, PROBABLE ISCHEMIA, LATERAL LEADS BORDERLINE PROLONGED QT INTERVAL : Confirmed by: Jessy Gonzalez MD 26-Mar-2018 09:38:03
[2018-03-26] MEDS: CARVEDILOL 12.5 MG TABLET PO SCH ×2 (09:45→21:48)
[2018-03-26] MEDS: ENOXAPARIN SODIUM INJ 30 MG/0.3 ML DISP.SYRIN SUBCUT SCH (09:45)
[2018-03-26] MEDS: AMLODIPINE BESYLATE 5 MG TABLET PO SCH (09:46)
[2018-03-26] MEDS: DOCUSATE SODIUM 100 MG CAPSULE PO SCH ×2 (09:46→17:24)
[2018-03-26] MEDS: ASPIRIN 81 MG TABLET, CHEWABLE PO SCH (09:46)
[2018-03-26] MEDS: FERROUS SULFATE 325 MG TABLET PO SCH (09:48)
--- NOTE | 2018-03-26 11:14 | PDOC PROGRESS REPORT ---
Subjective Progress Note for:: 03/26/18 Subjective:: Mr. Thurman is a 28-year-old male with past medical history of uncontrolled hypertension and CKD baseline creatinine 1.45 on 10/2016. Patient presented to ED on 03/21/2018 complaining of nausea and vomiting associated with diffuse crampy abdominal pain. Patient takes amlodipine 10 mg for his high blood pressure however he does not have a PCP or proper medical follow-up. Patient states that he checks his blood pressure at home and usually it runs at 190s. In ED patient was found to have a blood pressure of 210/146 with a heart rate of 90 CT of abdomen and pelvis did not show any obstructive uropathy labs showed mild leukocyte esterase elevation with mild leukocytosis. Denies any urinary symptoms on admission. Initial creatinine on admission was found to be 5.7. 03/23/2018. No acute events overnight patient is very pleasant and operative on physical examination comfortably sitting in his bed and stating that he is feeling much better he had a bowel movement yesterday and he is ambulatory tolerating p.o. intake. He mentions that he takes amlodipine at home but he does not have any proper medical follow-up. 03/24/2018. No acute events overnight. Patient states she is feeling much better and his fatigue has improved since yesterday. He is resting comfortably in his bed and very pleasant cooperative with physical examination. He is ambulatory and p.o. tolerant. Denies any fever, chills, nausea, vomiting, diarrhea, constipation or any urinary symptoms. He does mention that he has a family history of hypertension negative CAD. 03/25/2018. No acute events overnight. Patient stated he could not get enough sleep because of the fact that he was drinking the bowel prep. Otherwise he has been doing well and ambulating and tolerating his p.o. intakes. Not having any melena or hematochezia. 03/26/2018. No acute events overnight. On my encounter patient is comfortably sitting in his bed stating that he had a uneventful night, was able to sleep. He is ambulatory and p.o. tolerant. He denies any chest pain, shortness of breath, fever, nausea, vomiting, diarrhea or any urinary symptoms. Reason For Visit: ACUTE RENAL FAILURE Physical Exam Vital Signs: Temp Pulse Resp BP Pulse Ox 97.4 F 91 20 173/101 H 100 03/26/18 07:28 03/26/18 07:28 03/26/18 07:28 03/26/18 07:28 03/26/18 07:28 Intake & Output 03/25/18 03/26/18 03/27/18 06:59 06:59 06:59 Intake Total 7925 5543 Output Total 1553 5475 Balance 6372 68 Weight 153.2 kg 151.1 kg General appearance: PRESENT: no acute distress, morbidly obese, well-developed, well-nourished Respiratory exam: PRESENT: clear to auscultation tu. ABSENT: rales, rhonchi, wheezes Cardiovascular exam: PRESENT: RRR. ABSENT: diastolic murmur, rubs, systolic murmur GI/Abdominal exam: PRESENT: normal bowel sounds, soft. ABSENT: distended, guarding, mass, organolmegaly, rebound, tenderness Neurological exam: PRESENT: alert, awake, oriented to person, oriented to place , oriented to time, oriented to situation, CN II-XII grossly intact Results Laboratory Results: 03/26/18 07:29 03/25/18 16:35 03/25/18 03/25/18 03/26/18 16:35 16:35 07:29 WBC 13.2 H RBC 4.11 L Hgb 11.1 L Hct 34.0 L MCV 83 MCH 26.9 L MCHC 32.5 RDW 13.8 Plt Count 462 H Seg Neutrophils % 81.9 H Lymphocytes % 11.0 L Monocytes % 6.4 Eosinophils % 0.0 Basophils % 0.7 Absolute Neutrophils 10.8 H Absolute Lymphocytes 1.4 Absolute Monocytes 0.8 Absolute Eosinophils 0.0 Absolute Basophils 0.1 Sodium 143.1 Potassium 4.1 Chloride 100 Carbon Dioxide 29 Anion Gap 14 BUN 40 H Creatinine 4.71 H Est GFR ( Amer) 18 L Est GFR (Non-Af Amer) 15 L Glucose 116 H Calcium 9.6 PTH Intact 329.4 H Impressions: Acute Abdomen Series 03/21/18 10:29 IMPRESSION: 1. There is nondistended bowel and air-fluid levels about the abdomen; gas is present to the descending colon. There is no overt evidence of bowel obstruction although partial or developing obstruction could have this appearance. Consider CT to further evaluate if there is high clinical concern for bowel obstruction. 2. No acute abnormality of the lungs in frontal projection. Abdomen/Pelvis CT 03/21/18 11:53 IMPRESSION: No bowel obstruction. Mesenteritis. Renal Ultrasound 03/21/18 11:54 IMPRESSION: 1. Examination is limited due to overlying bowel gas and body habitus. Within this limitation, normal ultrasound appearance of the kidneys. No evidence of hydronephrosis. 2. Unremarkable ultrasound appearance of the partially distended urinary bladder. The bilateral urinary jets are nonvisualized, possibly due to exam limitations. Assessment & Plan - Diagnosis (1) [id number] kidney injury Qualifiers: Chronic kidney disease stage: stage 3 (moderate) Is this a current diagnosis for this admission?: Yes Plan: Likely due to uncontrolled hypertension. Denies any nephrotoxic medication intake. Baseline creatinine 1.45. 10/2016 Creatinine stable 4.45-4.80. Which could be his new baseline. Electrolytes within normal limits. Elevated PTH due to chronic CKD. Vascular renal ultrasound on 1121 2017- for any renal artery stenosis. Renal ultrasound on 03/21/2018 not optimal to body habitus but negative for any hydronephrosis. A1c within normal limits. DC fluids Monitor electrolytes. Optimize blood pressure control. Nephrology on board (2) Uncontrolled hypertension Is this a current diagnosis for this admission?: Yes Plan: Familial hypertension. Renal ultrasound negative for renal artery stenosis. Improving but not optimal. Euvolemic. 2D echo on 03/22/2018 normal ejection fraction with left ventricular hypertrophy. Carvedilol 25 mg twice daily, increase amlodipine to 10 mg p.o. daily, increase hydralazine to 50 mg 3 times daily. Consider clonidine if blood pressure not optimal. Low-sodium diet. Avoid AZUCENA and diuretics at this point. Consider AZUCENA and diuretics once creatinine is back to baseline. Plan for discharge to follow-up with nephrology and PCP once blood pressure is optimized. (3) Constipation Qualifiers: Constipation type: drug induced constipation Qualified Code(s): K59.03 - Drug induced constipation Is this a current diagnosis for this admission?: Yes Plan: Resolved. Likely due to amlodipine. Start on docusate 100 mg twice daily. Adjust bowel regimen of constipation continues. Advised on dietary modification. (4) Morbid obesity Is this a current diagnosis for this admission?: Yes Plan: Advised on lifestyle and diet modification. Hemoglobin A1c 4.8 on admission. Consult esl instructional assistant. (5) Nausea & vomiting Qualifiers: Vomiting type: unspecified Vomiting Intractability: unspecified Qualified Code(s): R11.2 - Nausea with vomiting, unspecified Is this a current diagnosis for this admission?: Yes Plan: Resolved. Likely due to REJI. (6) Normocytic anemia Is this a current diagnosis for this admission?: Yes Plan: Possibly combined anemia of CKD and iron deficiency anemia. Status post upper GI endoscopy on 03/25/2018 which showed gastritis which could be the reason for his anemia combined with his CKD. Denies any melena, hematochezia, hematemesis, hemoptysis. Low iron with normal ferritin, folic acid and vitamin B12 levels. Positive stool guaiac. Status post upper GI endoscopy. H&H stable. Continue oral ferrous sulfate. Monitor H&H. (7) Gastritis Is this a current diagnosis for this admission?: Yes Plan: Started on PPI. Pending gastric biopsy. Patient will need to be treated for H. pylori is positive.
[2018-03-26 11:48] LABS: ANION GAP 15 (5-19); BLOOD UREA NITROGEN 44 mg/dL (7-20); CALCIUM 9.9 mg/dL (8.4-10.2); CARBON DIOXIDE 24 mmol/L (22-30); CHLORIDE 103 mmol/L (98-107); GLUCOSE 102 mg/dL (75-110); PHOSPHORUS 5.6 mg/dL (2.5-4.5); POTASSIUM 4.3 mmol/L (3.6-5.0); SODIUM 141.5 mmol/L (137-145)
[2018-03-26] MEDS: LANSOPRAZOLE 30 MG TAB.RAP.DR PO SCH (12:22)
--- NOTE | 2018-03-26 13:03 | PDOC PROGRESS REPORT ---
Subjective Progress Note for:: 03/26/18 Subjective:: Patient underwent EGD yesterday and was found to have gastritis but no active bleeding. Is doing well and claims that he is drinking fluids adequately and eating good without any problems at this time. Does not really have any new complaints and has been stable. His blood pressure seems to be still elevated. Reason For Visit: ACUTE RENAL FAILURE Physical Exam Vital Signs: Temp Pulse Resp BP Pulse Ox 97.3 F 82 21 H 158/101 H 100 03/26/18 11:25 03/26/18 11:25 03/26/18 11:25 03/26/18 11:25 03/26/18 11:25 Intake & Output 03/25/18 03/26/18 03/27/18 06:59 06:59 06:59 Intake Total 7925 5543 1236 Output Total 1553 5475 1100 Balance 6372 68 136 Weight 153.2 kg 151.1 kg Exam: General appearance: PRESENT: no acute distress, cooperative, well-developed, well-nourished Head exam: PRESENT: atraumatic, normocephalic Eye exam: PRESENT: conjunctiva pink, PERRLA. ABSENT: scleral icterus Neck exam: ABSENT: JVD Respiratory exam: PRESENT: Normal breath sounds. ABSENT: crackles, rales, rhonchi, unlabored, wheezes Cardiovascular exam: PRESENT: Regular rate rhythm -+S1, +S2. ABSENT: diastolic murmur, systolic murmur GI/Abdominal exam: PRESENT: normal bowel sounds, soft. ABSENT: guarding, mass, tenderness Extremities exam: ABSENT: No edema Neurological exam: PRESENT: alert, awake, oriented to person, place and time. Skin exam: PRESENT: dry, warm, Results Laboratory Results: 03/26/18 07:29 03/26/18 07:29 03/25/18 03/25/18 03/26/18 16:35 16:35 07:29 WBC 13.2 H RBC 4.11 L Hgb 11.1 L Hct 34.0 L MCV 83 MCH 26.9 L MCHC 32.5 RDW 13.8 Plt Count 462 H Seg Neutrophils % 81.9 H Lymphocytes % 11.0 L Monocytes % 6.4 Eosinophils % 0.0 Basophils % 0.7 Absolute Neutrophils 10.8 H Absolute Lymphocytes 1.4 Absolute Monocytes 0.8 Absolute Eosinophils 0.0 Absolute Basophils 0.1 Sodium 143.1 Potassium 4.1 Chloride 100 Carbon Dioxide 29 Anion Gap 14 BUN 40 H Creatinine 4.71 H Est GFR ( Amer) 18 L Est GFR (Non-Af Amer) 15 L Glucose 116 H Calcium 9.6 Phosphorus PTH Intact 329.4 H 03/26/18 07:29 WBC RBC Hgb Hct MCV MCH MCHC RDW Plt Count Seg Neutrophils % Lymphocytes % Monocytes % Eosinophils % Basophils % Absolute Neutrophils Absolute Lymphocytes Absolute Monocytes Absolute Eosinophils Absolute Basophils Sodium 141.5 Potassium 4.3 Chloride 103 Carbon Dioxide 24 Anion Gap 15 BUN 44 H Creatinine 4.86 H Est GFR ( Amer) 17 L Est GFR (Non-Af Amer) 14 L Glucose 102 Calcium 9.9 Phosphorus 5.6 H PTH Intact 03/26/18 07:29 Troponin I 0.145 Impressions: Acute Abdomen Series 03/21/18 10:29 IMPRESSION: 1. There is nondistended bowel and air-fluid levels about the abdomen; gas is present to the descending colon. There is no overt evidence of bowel obstruction although partial or developing obstruction could have this appearance. Consider CT to further evaluate if there is high clinical concern for bowel obstruction. 2. No acute abnormality of the lungs in frontal projection. Abdomen/Pelvis CT 03/21/18 11:53 IMPRESSION: No bowel obstruction. Mesenteritis. Renal Ultrasound 03/21/18 11:54 IMPRESSION: 1. Examination is limited due to overlying bowel gas and body habitus. Within this limitation, normal ultrasound appearance of the kidneys. No evidence of hydronephrosis. 2. Unremarkable ultrasound appearance of the partially distended urinary bladder. The bilateral urinary jets are nonvisualized, possibly due to exam limitations. Assessment & Plan - Diagnosis (1) Acute kidney injury superimposed on chronic kidney disease Is this a current diagnosis for this admission?: Yes Plan: Kidney function remains unchanged. It is possible that the patient has establishing a new baseline kidney function at this time. Patient has no fluid overload and is nonuremic. (2) Chronic kidney disease (CKD) Is this a current diagnosis for this admission?: Yes Plan: Likely secondary to hypertensive nephrosclerosis with nephrotic range proteinuria with urine protein to creatinine ratio of 2.3. If this is indeed the patient's baseline kidney function than he is at chronic kidney disease stage IV. Reiterated the importance of periodic follow-up with a civil preparedness coordinator moving forward with the patient and his at bedside. They seem to be pretty receptive about taking medications and following instructions with regards to diet and periodic follow-up with a civil preparedness coordinator. (3) Proteinuria Qualifiers: Proteinuria type: persistent Qualified Code(s): R80.1 - Persistent proteinuria, unspecified Is this a current diagnosis for this admission?: Yes Plan: Nonnephrotic range secondary to hypertensive nephrosclerosis and CKD. (4) Uncontrolled hypertension Is this a current diagnosis for this admission?: Yes Plan: Blood pressure medications adjusted by the hospitalist service today. May continue the same and agree with considering clonidine if blood pressure remains uncontrolled. Duplex of renal artery showed low probability for renal artery stenosis. (5) Anemia in chronic kidney disease (CKD) Is this a current diagnosis for this admission?: Yes (6) Iron deficiency anemia Is this a current diagnosis for this admission?: Yes Plan: Start ferrous sulfate twice a day. (7) Secondary hyperparathyroidism Is this a current diagnosis for this admission?: Yes Plan: Start calcitriol 0.25 mcg once a day. Check 25-hydroxy vitamin D level. (8) Hyperphosphatemia Is this a current diagnosis for this admission?: Yes Plan: Start Tums 500 mg with meals. (9) Constipation Qualifiers: Constipation type: drug induced constipation Qualified Code(s): K59.03 - Drug induced constipation Is this a current diagnosis for this admission?: Yes (10) Heme positive stool Is this a current diagnosis for this admission?: Yes Plan: Secondary to gastritis. (11) Nausea & vomiting Qualifiers: Vomiting type: unspecified Vomiting Intractability: unspecified Qualified Code(s): R11.2 - Nausea with vomiting, unspecified Is this a current diagnosis for this admission?: Yes (12) Morbid obesity Is this a current diagnosis for this admission?: Yes - Time Time with patient: 15-25 minutes
[2018-03-26] MEDS: CALCITRIOL 0.25 MCG CAPSULE PO SCH (14:32)
[2018-03-26 14:37] LABS: A/G RATIO 0.9 (0.7-1.7); ALBUMIN 2 3.4 g/dL (2.9-4.4); ALPHA-2-GLOBULIN 2 0.9 g/dL (0.4-1.0); BETA GLOBULINS 1.3 g/dL (0.7-1.3); GAMMA GLOBULIN 1.3 g/dL (0.4-1.8); GLOBULIN TOTAL 3.8 g/dL (2.2-3.9); MONOCLONAL SPIKE Not Observed g/dL (Not Observ); PROTEIN TOTAL SERUM 7.2 g/dL (6.0-8.5)
[2018-03-26] MEDS: CALCIUM CARBONATE 500 MG TAB.CHEW PO SCH ×2 (17:25→21:49)
[2018-03-27] MEDS: HYDRALAZINE HCL 25 MG TABLET PO SCH (05:12)
[2018-03-27] MEDS: LANSOPRAZOLE 30 MG TAB.RAP.DR PO SCH (05:12)
[2018-03-27 06:01] LABS: HEMATOCRIT 33.1 % (37.9-51.0); HEMOGLOBIN 10.7 g/dL (13.5-17.0); MEAN CORPUSCULAR HEMOGLOBIN 26.8 pg (27.0-33.4); MEAN CORPUSCULAR HGB CONC 32.2 g/dL (32.0-36.0); MEAN CORPUSCULAR VOLUME 83 fl (80-97); PLATELET COUNT 408 10^3/uL (150-450); RED BLOOD COUNT 3.98 10^6/uL (4.35-5.55); RED CELL DISTRIBUTION WIDTH 13.8 % (11.5-14.0); WHITE BLOOD COUNT 10.9 10^3/uL (4.0-10.5)
[2018-03-27 06:28] LABS: ABSOLUTE LYMPHOCYTES# (MANUAL) 3.1 10^3/uL (0.5-4.7); ABSOLUTE MONOCYTES # (MANUAL) 0.8 10^3/uL (0.1-1.4); ABSOLUTE NEUTROPHILS# (MANUAL) 6.9 10^3/uL (1.7-8.2); BASOPHILS % (MANUAL) 0 % (0-2); EOSINOPHILS % (MANUAL) 2 % (0-6); LYMPHOCYTES % (MANUAL) 28 % (13-45); MONOCYTES % (MANUAL) 7 % (3-13); SEGMENTED NEUTROPHILS % (MAN) 63 % (42-78); TOTAL CELLS COUNTED 100
[2018-03-27 06:29] LABS: PLATELET COMMENT ADEQUATE; RBC MORPHOLOGY COMMENT NORMO-CYTIC/CHROMIC
[2018-03-27] MEDS ORDERED: HYDRALAZINE HCL 25 MG TABLET PO SCH ×2 (07:30→14:00)
[2018-03-27] MEDS ORDERED: HYDRALAZINE HCL 25 MG TABLET PO ONE (08:00)
[2018-03-27] MEDS: CALCIUM CARBONATE 500 MG TAB.CHEW PO SCH ×4 (08:05→21:52)
[2018-03-27 08:38] LABS: ANION GAP 12 (5-19); BLOOD UREA NITROGEN 52 mg/dL (7-20); CALCIUM 9.3 mg/dL (8.4-10.2); CARBON DIOXIDE 24 mmol/L (22-30); CHLORIDE 105 mmol/L (98-107); GLUCOSE 87 mg/dL (75-110); POTASSIUM 3.9 mmol/L (3.6-5.0); SODIUM 141.4 mmol/L (137-145)
[2018-03-27] MEDS: DOCUSATE SODIUM 100 MG CAPSULE PO SCH ×2 (09:35→17:16)
[2018-03-27] MEDS: CARVEDILOL 12.5 MG TABLET PO SCH (09:35)
[2018-03-27] MEDS: ENOXAPARIN SODIUM INJ 30 MG/0.3 ML DISP.SYRIN SUBCUT SCH (09:35)
[2018-03-27] MEDS: ASPIRIN 81 MG TABLET, CHEWABLE PO SCH (09:35)
[2018-03-27] MEDS: FERROUS SULFATE 325 MG TABLET PO SCH ×2 (09:35→17:16)
[2018-03-27] MEDS: AMLODIPINE BESYLATE 5 MG TABLET PO SCH (09:35)
[2018-03-27] MEDS: CALCITRIOL 0.25 MCG CAPSULE PO SCH (09:36)
--- NOTE | 2018-03-27 12:27 | PDOC PROGRESS REPORT ---
Subjective Progress Note for:: 03/27/18 Subjective:: Patient is doing fine and stable. Blood pressure is still not well controlled. No new complaints. Reason For Visit: ACUTE RENAL FAILURE Physical Exam Vital Signs: Temp Pulse Resp BP Pulse Ox 97.5 F 72 18 161/99 H 100 03/27/18 11:44 03/27/18 11:44 03/27/18 11:44 03/27/18 11:44 03/27/18 11:44 Intake & Output 03/26/18 03/27/18 03/28/18 06:59 06:59 06:59 Intake Total 5543 2925 1074 Output Total 5493 3900 700 Balance 68 -975 374 Weight 151.1 kg 149.4 kg Exam: General appearance: PRESENT: no acute distress, cooperative, well-developed, well-nourished Head exam: PRESENT: atraumatic, normocephalic Eye exam: PRESENT: conjunctiva pink, PERRLA. ABSENT: scleral icterus Neck exam: ABSENT: JVD Respiratory exam: PRESENT: Normal breath sounds. ABSENT: crackles, rales, rhonchi, unlabored, wheezes Cardiovascular exam: PRESENT: Regular rate rhythm -+S1, +S2. ABSENT: diastolic murmur, systolic murmur GI/Abdominal exam: PRESENT: normal bowel sounds, soft. ABSENT: guarding, mass, tenderness Extremities exam: ABSENT: No edema Neurological exam: PRESENT: alert, awake, oriented to person, place and time. Skin exam: PRESENT: dry, warm, Results Laboratory Results: 03/27/18 05:53 03/27/18 05:53 03/25/18 03/27/18 03/27/18 06:12 05:53 05:53 WBC 10.9 H RBC 3.98 L Hgb 10.7 L Hct 33.1 L MCV 83 MCH 26.8 L MCHC 32.2 RDW 13.8 Plt Count 408 Seg Neutrophils % Not Reportable Lymphocytes % Not Reportable Monocytes % Not Reportable Eosinophils % Not Reportable Basophils % Not Reportable Absolute Neutrophils Not Reportable Absolute Lymphocytes Not Reportable Absolute Monocytes Not Reportable Absolute Eosinophils Not Reportable Absolute Basophils Not Reportable Sodium Potassium Chloride Carbon Dioxide Anion Gap BUN Creatinine Est GFR ( Amer) Est GFR (Non-Af Amer) Glucose Calcium Phosphorus Magnesium 2.2 Total Protein 7.2 Albumin 3.4 03/27/18 03/27/18 05:53 05:53 WBC RBC Hgb Hct MCV MCH MCHC RDW Plt Count Seg Neutrophils % Lymphocytes % Monocytes % Eosinophils % Basophils % Absolute Neutrophils Absolute Lymphocytes Absolute Monocytes Absolute Eosinophils Absolute Basophils Sodium 141.4 Potassium 3.9 Chloride 105 Carbon Dioxide 24 Anion Gap 12 BUN 52 H Creatinine 4.94 H Est GFR ( Amer) 17 L Est GFR (Non-Af Amer) 14 L Glucose 87 Calcium 9.3 Phosphorus 5.3 H Magnesium Total Protein Albumin 03/26/18 03/26/18 03/27/18 07:29 18:23 00:17 Troponin I 0.145 0.138 0.153 Impressions: Acute Abdomen Series 03/21/18 10:29 IMPRESSION: 1. There is nondistended bowel and air-fluid levels about the abdomen; gas is present to the descending colon. There is no overt evidence of bowel obstruction although partial or developing obstruction could have this appearance. Consider CT to further evaluate if there is high clinical concern for bowel obstruction. 2. No acute abnormality of the lungs in frontal projection. Abdomen/Pelvis CT 03/21/18 11:53 IMPRESSION: No bowel obstruction. Mesenteritis. Renal Ultrasound 03/21/18 11:54 IMPRESSION: 1. Examination is limited due to overlying bowel gas and body habitus. Within this limitation, normal ultrasound appearance of the kidneys. No evidence of hydronephrosis. 2. Unremarkable ultrasound appearance of the partially distended urinary bladder. The bilateral urinary jets are nonvisualized, possibly due to exam limitations. Assessment & Plan - Diagnosis (1) Acute kidney injury superimposed on chronic kidney disease Is this a current diagnosis for this admission?: Yes Plan: Kidney function remains unchanged. It is possible that the patient has establishing a new baseline kidney function at this time. Patient has no fluid overload and is nonuremic. (2) Chronic kidney disease (CKD) Is this a current diagnosis for this admission?: Yes Plan: Likely secondary to hypertensive nephrosclerosis with non-nephrotic range proteinuria with urine protein to creatinine ratio of 2.3. If this is indeed the patient's baseline kidney function than he is at chronic kidney disease stage IV. Reiterated the importance of periodic follow-up with a senior project leader/team lead moving forward with the patient and his at bedside. They seem to be pretty receptive about taking medications and following instructions with regards to diet and periodic follow-up with a senior project leader/team lead. (3) Proteinuria Qualifiers: Proteinuria type: persistent Qualified Code(s): R80.1 - Persistent proteinuria, unspecified Is this a current diagnosis for this admission?: Yes Plan: Nonnephrotic range secondary to hypertensive nephrosclerosis and CKD. (4) Uncontrolled hypertension Is this a current diagnosis for this admission?: Yes Plan: Blood pressure medications adjusted by the hospitalist service today. May continue the same and agree with considering clonidine if blood pressure remains uncontrolled. Duplex of renal artery showed low probability for renal artery stenosis. (5) Anemia in chronic kidney disease (CKD) Is this a current diagnosis for this admission?: Yes (6) Iron deficiency anemia Is this a current diagnosis for this admission?: Yes Plan: Start ferrous sulfate twice a day. (7) Secondary hyperparathyroidism Is this a current diagnosis for this admission?: Yes Plan: Start calcitriol 0.25 mcg once a day. (8) Hyperphosphatemia Is this a current diagnosis for this admission?: Yes Plan: Start Tums 500 mg with meals. (9) Vitamin D deficiency Is this a current diagnosis for this admission?: Yes Plan: Start vitamin D 5000 units daily. (10) Constipation Qualifiers: Constipation type: drug induced constipation Qualified Code(s): K59.03 - Drug induced constipation Is this a current diagnosis for this admission?: Yes (11) Heme positive stool Is this a current diagnosis for this admission?: Yes Plan: Secondary to gastritis. (12) Nausea & vomiting Qualifiers: Vomiting type: unspecified Vomiting Intractability: unspecified Qualified Code(s): R11.2 - Nausea with vomiting, unspecified Is this a current diagnosis for this admission?: Yes (13) Morbid obesity Is this a current diagnosis for this admission?: Yes - Notes Notes: From nephrology standpoint patient can be discharged home once the blood pressure has been adequately or near adequately controlled. I will be happy to see him in my office for follow-up in the next 2-3 weeks with repeat CBC and BMP 2-3 days before his appointment. - Time Time with patient: 15-25 minutes
[2018-03-27] MEDS: CHOLECALCIFEROL (D3) 1,000 UNIT TABLET PO SCH (13:17)
[2018-03-27] MEDS: HYDRALAZINE HCL 50 MG TABLET PO SCH ×2 (13:18→21:52)
[2018-03-27] MEDS ORDERED: CLONIDINE HCL 0.1 MG TABLET PO SCH ×2 (14:45→15:30)
--- NOTE | 2018-03-27 18:16 | PDOC PROGRESS REPORT ---
Subjective Progress Note for:: 03/27/18 Subjective:: Mr. Thurman is a 28-year-old male with past medical history of uncontrolled hypertension and CKD baseline creatinine 1.45 on 10/2016. Patient presented to ED on 03/21/2018 complaining of nausea and vomiting associated with diffuse crampy abdominal pain. Patient takes amlodipine 10 mg for his high blood pressure however he does not have a PCP or proper medical follow-up. Patient states that he checks his blood pressure at home and usually it runs at 190s. In ED patient was found to have a blood pressure of 210/146 with a heart rate of 90 CT of abdomen and pelvis did not show any obstructive uropathy labs showed mild leukocyte esterase elevation with mild leukocytosis. Denies any urinary symptoms on admission. Initial creatinine on admission was found to be 5.7. 03/23/2018. No acute events overnight patient is very pleasant and operative on physical examination comfortably sitting in his bed and stating that he is feeling much better he had a bowel movement yesterday and he is ambulatory tolerating p.o. intake. He mentions that he takes amlodipine at home but he does not have any proper medical follow-up. 03/24/2018. No acute events overnight. Patient states she is feeling much better and his fatigue has improved since yesterday. He is resting comfortably in his bed and very pleasant cooperative with physical examination. He is ambulatory and p.o. tolerant. Denies any fever, chills, nausea, vomiting, diarrhea, constipation or any urinary symptoms. He does mention that he has a family history of hypertension negative CAD. 03/25/2018. No acute events overnight. Patient stated he could not get enough sleep because of the fact that he was drinking the bowel prep. Otherwise he has been doing well and ambulating and tolerating his p.o. intakes. Not having any melena or hematochezia. 03/26/2018. No acute events overnight. On my encounter patient is comfortably sitting in his bed stating that he had a uneventful night, was able to sleep. He is ambulatory and p.o. tolerant. He denies any chest pain, shortness of breath, fever, nausea, vomiting, diarrhea or any urinary symptoms. 03/27/2018. No acute events overnight. Patient has been ambulatory and p.o. tolerant. Nausea and fatigue has improved. Denies any chest pain, shortness of breath, nausea, vomiting, diarrhea or constipation. Reason For Visit: ACUTE RENAL FAILURE Physical Exam Vital Signs: Temp Pulse Resp BP Pulse Ox 98.3 F 71 18 164/100 H 100 03/27/18 15:14 03/27/18 15:14 03/27/18 15:14 03/27/18 15:14 03/27/18 15:14 Intake & Output 03/26/18 03/27/18 03/28/18 06:59 06:59 06:59 Intake Total 5548 6895 1474 Output Total 4637 1260 2500 Balance 02 -166 -7187 Weight 151.1 kg 149.4 kg Results Laboratory Results: 03/27/18 05:53 03/27/18 05:53 03/25/18 03/27/18 03/27/18 06:12 05:53 05:53 WBC 10.9 H RBC 3.98 L Hgb 10.7 L Hct 33.1 L MCV 83 MCH 26.8 L MCHC 32.2 RDW 13.8 Plt Count 408 Seg Neutrophils % Not Reportable Lymphocytes % Not Reportable Monocytes % Not Reportable Eosinophils % Not Reportable Basophils % Not Reportable Absolute Neutrophils Not Reportable Absolute Lymphocytes Not Reportable Absolute Monocytes Not Reportable Absolute Eosinophils Not Reportable Absolute Basophils Not Reportable Sodium Potassium Chloride Carbon Dioxide Anion Gap BUN Creatinine Est GFR ( Amer) Est GFR (Non-Af Amer) Glucose Calcium Phosphorus Magnesium 2.2 Total Protein 7.2 Albumin 3.4 03/27/18 03/27/18 05:53 05:53 WBC RBC Hgb Hct MCV MCH MCHC RDW Plt Count Seg Neutrophils % Lymphocytes % Monocytes % Eosinophils % Basophils % Absolute Neutrophils Absolute Lymphocytes Absolute Monocytes Absolute Eosinophils Absolute Basophils Sodium 141.4 Potassium 3.9 Chloride 105 Carbon Dioxide 24 Anion Gap 12 BUN 52 H Creatinine 4.94 H Est GFR ( Amer) 17 L Est GFR (Non-Af Amer) 14 L Glucose 87 Calcium 9.3 Phosphorus 5.3 H Magnesium Total Protein Albumin 03/26/18 03/26/18 03/27/18 07:29 18:23 00:17 Troponin I 0.145 0.138 0.153 03/27/18 15:45 Troponin I 0.138 Impressions: Acute Abdomen Series 03/21/18 10:29 IMPRESSION: 1. There is nondistended bowel and air-fluid levels about the abdomen; gas is present to the descending colon. There is no overt evidence of bowel obstruction although partial or developing obstruction could have this appearance. Consider CT to further evaluate if there is high clinical concern for bowel obstruction. 2. No acute abnormality of the lungs in frontal projection. Abdomen/Pelvis CT 03/21/18 11:53 IMPRESSION: No bowel obstruction. Mesenteritis. Renal Ultrasound 03/21/18 11:54 IMPRESSION: 1. Examination is limited due to overlying bowel gas and body habitus. Within this limitation, normal ultrasound appearance of the kidneys. No evidence of hydronephrosis. 2. Unremarkable ultrasound appearance of the partially distended urinary bladder. The bilateral urinary jets are nonvisualized, possibly due to exam limitations. Assessment & Plan - Diagnosis (1) [id number] kidney injury Qualifiers: Chronic kidney disease stage: stage 3 (moderate) Is this a current diagnosis for this admission?: Yes Plan: Likely due to uncontrolled hypertension. Denies any nephrotoxic medication intake. Baseline creatinine 1.45. 10/2016 Creatinine stable 4.45-4.80. Which could be his new baseline. Electrolytes within normal limits. Elevated PTH due to chronic CKD. Vascular renal ultrasound on 1121 2017- for any renal artery stenosis. Renal ultrasound on 03/21/2018 not optimal to body habitus but negative for any hydronephrosis. A1c within normal limits. DC fluids Monitor electrolytes. Optimize blood pressure control. Nephrology on board (2) Uncontrolled hypertension Is this a current diagnosis for this admission?: Yes Plan: Familial hypertension. Renal ultrasound negative for renal artery stenosis. Improving but not optimal. Euvolemic. 2D echo on 03/22/2018 normal ejection fraction with left ventricular hypertrophy. DC carvedilol. Start clonidine 0.2 twice daily, amlodipine 10 mg p.o. daily, hydralazine 100 mg p.o. 3 times daily. Low-sodium diet. Avoid AZUCENA and diuretics at this point. Consider AZUCENA and diuretics once creatinine is back to baseline. Plan for discharge to follow-up with nephrology and PCP once blood pressure is optimized. (3) Constipation Qualifiers: Constipation type: drug induced constipation Qualified Code(s): K59.03 - Drug induced constipation Is this a current diagnosis for this admission?: Yes Plan: Resolved. Likely due to amlodipine. Start on docusate 100 mg twice daily. Adjust bowel regimen of constipation continues. Advised on dietary modification. (4) Morbid obesity Is this a current diagnosis for this admission?: Yes Plan: Advised on lifestyle and diet modification. Hemoglobin A1c 4.8 on admission. Consult coating supervisor. (5) Nausea & vomiting Qualifiers: Vomiting type: unspecified Vomiting Intractability: unspecified Qualified Code(s): R11.2 - Nausea with vomiting, unspecified Is this a current diagnosis for this admission?: Yes Plan: Resolved. Likely due to REJI. (6) Normocytic anemia Is this a current diagnosis for this admission?: Yes Plan: Possibly combined anemia of CKD and iron deficiency anemia. Status post upper GI endoscopy on 03/25/2018 which showed gastritis which could be the reason for his anemia combined with his CKD. Denies any melena, hematochezia, hematemesis, hemoptysis. Low iron with normal ferritin, folic acid and vitamin B12 levels. Positive stool guaiac. Status post upper GI endoscopy. H&H stable. Continue oral ferrous sulfate. Monitor H&H. (7) Gastritis Is this a current diagnosis for this admission?: Yes Plan: Started on PPI. Pending gastric biopsy. Patient will need to be treated for H. pylori is positive.
--- NOTE | 2018-03-27 22:14 | PDOC CONSULTATION ---
Consultation-Blank Consultation: CARDIOLOGY CONSULTATION by Dr. Jessy Gonzalez, on 03/27/2018. Patient seen at 11:15 AM. 60 minutes spent on this patient with more than 50% of time spent in direct patient care. REASON FOR CONSULTATION: Patient with abnormal EKG and elevated troponin levels. HISTORY OF PRESENT ILLNESS: Note that the chart was reviewed in total. Patient is a 28-year-old Afro-Iraqi male with known history of hypertension, which has been difficult to control was admitted with symptoms of nausea vomiting and the patient knowing that his blood pressure was elevated. In the emergency room he had elevated blood pressure which was in the malignant hypertensive range, and initially was treated with Cardene. His blood pressure still is not very well controlled. He denies any chest pain or discomfort. There is no PND orthopnea. There is no leg edema. He has no history of diabetes mellitus. There is no history of congenital heart disease. Selected Entries 03/21/18 03/27/18 10:09 11:44 Temperature 98.1 F 97.5 F Temperature Oral Oral Source Pulse Rate 109 H 72 Respiratory 20 18 Rate Blood Pressure 210/146 H 161/99 H Blood Pressure 167 119 Mean BP Location Left Arm Right Arm BP Position Sitting Supine O2 Sat by Pulse 98 100 Oximetry Oxygen Delivery Room Air Room Air Method 03/21/18 03/21/18 03/24/18 10:50 10:50 09:50 WBC Hgb Hct Plt Count Sodium 136.5 L Potassium 4.0 Chloride 94 L Carbon Dioxide 27 Anion Gap 16 BUN 50 H Creatinine 5.17 H Est GFR ( Amer) 16 L Est GFR (Non-Af Amer) 13 L Glucose 112 H Calcium 9.5 Phosphorus Magnesium Total Bilirubin 0.5 Direct Bilirubin 0.2 Neonat Total Bilirubin Not Reportable Neonat Direct Bilirubin Not Reportable Neonat Indirect Bili Not Reportable AST 22 ALT 14 L Alkaline Phosphatase 94 Troponin I 0.075 Total Protein 7.6 Albumin 4.3 Globulin Albumin/Globulin Ratio [id number] Beta Globulins Gamma Globulins M-Donaldo PEP Note PEP Interpretation Lipase 63.1 Stool Occult Blood POSITIVE 03/25/18 03/26/18 03/27/18 06:12 07:29 00:17 WBC Hgb Hct Plt Count Sodium Potassium Chloride Carbon Dioxide Anion Gap BUN Creatinine Est GFR ( Amer) Est GFR (Non-Af Amer) Glucose Calcium Phosphorus Magnesium Total Bilirubin Direct Bilirubin Neonat Total Bilirubin Neonat Direct Bilirubin Neonat Indirect Bili AST ALT Alkaline Phosphatase Troponin I 0.145 0.153 Total Protein 7.2 Albumin 3.4 Globulin 3.8 Albumin/Globulin Ratio 0.9 [id number]-[id number] 0.9 Beta Globulins 1.3 Gamma Globulins 1.3 M-Donaldo Not Observed PEP Note Comment PEP Interpretation Comment Lipase Stool Occult Blood 03/27/18 03/27/18 03/27/18 05:53 05:53 05:53 WBC 10.9 H Hgb 10.7 L Hct 33.1 L Plt Count 408 Sodium Potassium Chloride Carbon Dioxide Anion Gap BUN Creatinine Est GFR ( Amer) Est GFR (Non-Af Amer) Glucose Calcium Phosphorus 5.3 H Magnesium 2.2 Total Bilirubin Direct Bilirubin Neonat Total Bilirubin Neonat Direct Bilirubin Neonat Indirect Bili AST ALT Alkaline Phosphatase Troponin I Total Protein Albumin Globulin Albumin/Globulin Ratio [id number] Beta Globulins Gamma Globulins M-Donaldo PEP Note PEP Interpretation Lipase Stool Occult Blood 03/27/18 03/27/18 05:53 15:45 WBC Hgb Hct Plt Count Sodium 141.4 Potassium 3.9 Chloride 105 Carbon Dioxide 24 Anion Gap BUN 52 H Creatinine 4.94 H Est GFR ( Amer) 17 L Est GFR (Non-Af Amer) Glucose Calcium 9.3 Phosphorus Magnesium Total Bilirubin Direct Bilirubin Neonat Total Bilirubin Neonat Direct Bilirubin Neonat Indirect Bili AST ALT Alkaline Phosphatase Troponin I 0.138 Total Protein Albumin Globulin Albumin/Globulin Ratio Hutnl-1-Fceyxbkaj Beta Globulins Gamma Globulins M-Donaldo PEP Note PEP Interpretation Lipase Stool Occult Blood
[2018-03-28] MEDS: LANSOPRAZOLE 30 MG TAB.RAP.DR PO SCH (05:42)
[2018-03-28] MEDS: HYDRALAZINE HCL 50 MG TABLET PO SCH (05:42)
[2018-03-28 05:49] LABS: ABSOLUTE BASOPHILS # (AUTO) 0.1 10^3/uL (0.0-0.2); ABSOLUTE EOSINOPHILS # (AUTO) 0.2 10^3/uL (0.0-0.6); ABSOLUTE LYMPHOCYTES (AUTO) 2.2 10^3/uL (0.5-4.7); ABSOLUTE MONOCYTES (AUTO) 0.7 10^3/uL (0.1-1.4); ABSOLUTE NEUT (AUTO) 5.2 10^3/uL (1.7-8.2); BASOPHILS % (AUTO) 0.8 % (0-2); EOSINOPHILS % (AUTO) 2.2 % (0-6); HEMATOCRIT 34.8 % (37.9-51.0); HEMOGLOBIN 11.4 g/dL (13.5-17.0); LYMPHOCYTES % (AUTO) 26.2 % (13-45); MEAN CORPUSCULAR HEMOGLOBIN 27.1 pg (27.0-33.4); MEAN CORPUSCULAR HGB CONC 32.7 g/dL (32.0-36.0); MEAN CORPUSCULAR VOLUME 83 fl (80-97); MONOCYTES % (AUTO) 8.8 % (3-13); PLATELET COUNT 438 10^3/uL (150-450); RED CELL DISTRIBUTION WIDTH 13.9 % (11.5-14.0); TOTAL CELLS COUNTED % (AUTO) 100 %; WHITE BLOOD COUNT 8.4 10^3/uL (4.0-10.5)
[2018-03-28 06:06] LABS: ALANINE AMINOTRANSFERASE 23 U/L (21-72); ALBUMIN 3.7 g/dL (3.5-5.0); ALKALINE PHOSPHATASE 77 U/L (38-126); ANION GAP 14 (5-19); ASPARTATE AMINO TRANSFERASE 15 U/L (17-59); BILIRUBIN,DIRECT 0.3 mg/dL (0.0-0.4); BILIRUBIN,TOTAL 0.4 mg/dL (0.2-1.3); BLOOD UREA NITROGEN 52 mg/dL (7-20); CALCIUM 9.5 mg/dL (8.4-10.2); CARBON DIOXIDE 24 mmol/L (22-30); CHLORIDE 104 mmol/L (98-107); GLUCOSE 86 mg/dL (75-110); POTASSIUM 3.9 mmol/L (3.6-5.0); SODIUM 141.9 mmol/L (137-145); TOTAL PROTEIN 6.8 g/dL (6.3-8.2)
[2018-03-28] MEDS: CALCIUM CARBONATE 500 MG TAB.CHEW PO SCH ×2 (09:59→12:56)
[2018-03-28] MEDS: ASPIRIN 81 MG TABLET, CHEWABLE PO SCH (09:59)
[2018-03-28] MEDS: CHOLECALCIFEROL (D3) 1,000 UNIT TABLET PO SCH (09:59)
[2018-03-28] MEDS: AMLODIPINE BESYLATE 5 MG TABLET PO SCH (10:00)
[2018-03-28] MEDS: FERROUS SULFATE 325 MG TABLET PO SCH (10:00)
[2018-03-28] MEDS ORDERED: CLONIDINE HCL 0.1 MG TABLET PO SCH (10:00)
[2018-03-28] MEDS: DOCUSATE SODIUM 100 MG CAPSULE PO SCH (10:00)
[2018-03-28] MEDS: CALCITRIOL 0.25 MCG CAPSULE PO SCH (10:00)
[2018-03-28] MEDS: ENOXAPARIN SODIUM INJ 30 MG/0.3 ML DISP.SYRIN SUBCUT SCH (10:01)
[2018-03-28 11:31] VITALS: BP 146/94
--- NOTE | 2018-03-28 13:00 | PDOC DISCHARGE SUMMARY ---
General - Admit/Disc Date/PCP Admission Date/Primary Care Provider: 03/21/18 16:01 Discharge Date: 03/28/18 - Discharge Diagnosis (1) Dddxi-vx-hptzycx kidney injury Is this a current diagnosis for this admission?: Yes (2) Uncontrolled hypertension Is this a current diagnosis for this admission?: Yes (3) Constipation Is this a current diagnosis for this admission?: Yes (4) Morbid obesity Is this a current diagnosis for this admission?: Yes (5) Nausea & vomiting Is this a current diagnosis for this admission?: Yes (6) Normocytic anemia Is this a current diagnosis for this admission?: Yes (7) Gastritis Is this a current diagnosis for this admission?: Yes - Additional Information Resuscitation Status: Full Code Discharge Diet: As Tolerated Discharge Activity: Activity As Tolerated Prescriptions: Aspirin [Aspirin 81 mg Chewable Tablet] 81 mg PO DAILY 30 Days #30 tab.chew Calcitriol [Rocaltrol 0.25 mcg Capsule] 0.25 mcg PO DAILY 30 Days #30 capsule Calcium Carbonate [Tums Chewable 500 mg Tab.chew] 500 mg PO MEALSHS 30 Days #30 tab.chew Cholecalciferol (Vitamin D3) [Vitamin D3 1000 Unit Tablet] 5,000 unit PO DAILY 30 Days #30 tablet Clonidine HCl [Catapres 0.1 mg Tablet] 0.3 mg PO DAILY 30 Days #60 tablet Docusate Sodium [Colace 100 mg Capsule] 200 mg PO BID 30 Days #60 capsule Ferrous Sulfate [Feosol 325 mg Tablet] 325 mg PO BID 30 Days #60 tablet Hydralazine HCl [Apresoline 50 mg Tablet] 100 mg PO Q8 30 Days #90 tablet Lansoprazole [Prevacid 30 mg Odt Tablet] 30 mg PO Q6AM 42 Days #60 tab.rap.dr Bonilla Medications: Amlodipine Besylate [Norvasc 10 mg Tablet] 10 mg PO DAILY 03/21/18 Aspirin [Aspirin 81 mg Chewable Tablet] 81 mg PO DAILY 30 Days #30 tab.chew Calcitriol [Rocaltrol 0.25 mcg Capsule] 0.25 mcg PO DAILY 30 Days #30 capsule Calcium Carbonate [Tums Chewable 500 mg Tab.chew] 500 mg PO MEALSHS 30 Days #30 tab.chew 03/28/18 Cholecalciferol (Vitamin D3) [Vitamin D3 1000 Unit Tablet] 5,000 unit PO DAILY 30 Days #30 tablet 03/28/18 Clonidine HCl [Catapres 0.1 mg Tablet] 0.3 mg PO DAILY 30 Days #60 tablet Docusate Sodium [Colace 100 mg Capsule] 200 mg PO BID 30 Days #60 capsule Ferrous Sulfate [Feosol 325 mg Tablet] 325 mg PO BID 30 Days #60 tablet Hydralazine HCl [Apresoline 50 mg Tablet] 100 mg PO Q8 30 Days #90 tablet Lansoprazole [Prevacid 30 mg Odt Tablet] 30 mg PO Q6AM 42 Days #60 tab.marcie. History of Present Illness History of Present Illness: Mr. Thurman is a 28-year-old male with past medical history of uncontrolled hypertension and CKD baseline creatinine 1.45 on 10/2016. Patient presented to ED on 03/21/2018 complaining of nausea and vomiting associated with diffuse crampy abdominal pain. Patient takes amlodipine 10 mg for his high blood pressure however he does not have a PCP or proper medical follow-up. Patient states that he checks his blood pressure at home and usually it runs at 190s. In ED patient was found to have a blood pressure of 210/146 with a heart rate of 90 CT of abdomen and pelvis did not show any obstructive uropathy labs showed mild leukocyte esterase elevation with mild leukocytosis. Denies any urinary symptoms on admission. Initial creatinine on admission was found to be 5.7. Hospital Course Hospital Course: (1) Swkhl-am-yynlsvz kidney injury Likely due to uncontrolled hypertension. Denies any nephrotoxic medication intake. Baseline creatinine 1.45. 10/2016 Creatinine remained stable 4-5. Which could be his new baseline. Electrolytes within normal limits. Elevated PTH due to chronic CKD. Vascular renal ultrasound on 1121 2017- for any renal artery stenosis. Renal ultrasound on 03/21/2018 not optimal to body habitus but negative for any hydronephrosis. A1c within normal limits. Nephrology followed up while inpatient. Patient to follow-up with nephrology as outpatient. (2) Uncontrolled hypertension Familial hypertension. Very difficult to control. Renal ultrasound negative for renal artery stenosis. Stayed euvolemic 2D echo on 03/22/2018 normal ejection fraction with left ventricular hypertrophy. DC carvedilol. 10.3 twice daily, amlodipine 10 mg p.o. daily hydralazine 100 mg p.o. 3 times daily. Low-sodium diet. Avoid AZUCENA and diuretics at this point. Consider AZUCENA and diuretics once creatinine is back to baseline. Highly encouraged to follow-up with PCP and poacher operator and imaging assistant. (3) Constipation Resolved. Likely due to amlodipine. Start on docusate 100 mg twice daily. Adjust bowel regimen of constipation continues. Advised on dietary modification. (4) Morbid obesity Advised on lifestyle and diet modification. Hemoglobin A1c 4.8 on admission. Consult cane cutter. (5) Nausea & vomiting Resolved. Likely due to REJI. (6) Normocytic anemia Possibly combined anemia of CKD and iron deficiency anemia. Status post upper GI endoscopy on 03/25/2018 which showed gastritis which could be the reason for his anemia combined with his CKD. Denies any melena, hematochezia, hematemesis, hemoptysis. Low iron with normal ferritin, folic acid and vitamin B12 levels. Positive stool guaiac. Status post upper GI endoscopy. H&H stable. Continue oral ferrous sulfate. Discharge on PPI for 42 days. To follow-up with PCP and check CBC. Was also asked to follow-up with a result of GI biopsy in case he has H. pylori. (7) Gastritis Started on PPI. Pending gastric biopsy. As to follow-up with PCP about the results of gastric biopsy. Physical Exam Vital Signs: Temp Pulse Resp BP Pulse Ox 97.4 F 74 20 146/94 H 100 03/28/18 12:31 03/28/18 12:31 03/28/18 12:31 03/28/18 12:31 03/28/18 12:31 Intake & Output 03/27/18 03/28/18 03/29/18 06:59 06:59 06:59 Intake Total 2925 2111 237 Output Total 3900 5640 600 Balance -477 -1006 -634 Weight 149.4 kg 147.1 kg General appearance: PRESENT: no acute distress, well-developed, well-nourished Head exam: PRESENT: atraumatic, normocephalic Respiratory exam: PRESENT: clear to auscultation tu. ABSENT: rales, rhonchi, wheezes Cardiovascular exam: PRESENT: RRR. ABSENT: diastolic murmur, rubs, systolic murmur GI/Abdominal exam: PRESENT: normal bowel sounds, soft. ABSENT: distended, guarding, mass, organolmegaly, rebound, tenderness Results Laboratory Results: 03/28/18 05:40 03/28/18 05:40 03/28/18 03/28/18 05:40 05:40 WBC 8.4 RBC 4.20 L Hgb 11.4 L Hct 34.8 L MCV 83 MCH 27.1 MCHC 32.7 RDW 13.9 Plt Count 438 Seg Neutrophils % 62.0 Lymphocytes % 26.2 Monocytes % 8.8 Eosinophils % 2.2 Basophils % 0.8 Absolute Neutrophils 5.2 Absolute Lymphocytes 2.2 Absolute Monocytes 0.7 Absolute Eosinophils 0.2 Absolute Basophils 0.1 Sodium 141.9 Potassium 3.9 Chloride 104 Carbon Dioxide 24 Anion Gap 14 BUN 52 H Creatinine 4.70 H Est GFR ( Amer) 18 L Est GFR (Non-Af Amer) 15 L Glucose 86 Calcium 9.5 Total Bilirubin 0.4 AST 15 L ALT 23 Alkaline Phosphatase 77 Total Protein 6.8 Albumin 3.7 03/26/18 03/26/18 03/27/18 07:29 18:23 00:17 Troponin I 0.145 0.138 0.153 03/27/18 15:45 Troponin I 0.138 Impressions: Acute Abdomen Series 03/21/18 10:29 IMPRESSION: 1. There is nondistended bowel and air-fluid levels about the abdomen; gas is present to the descending colon. There is no overt evidence of bowel obstruction although partial or developing obstruction could have this appearance. Consider CT to further evaluate if there is high clinical concern for bowel obstruction. 2. No acute abnormality of the lungs in frontal projection. Abdomen/Pelvis CT 03/21/18 11:53 IMPRESSION: No bowel obstruction. Mesenteritis. Renal Ultrasound 03/21/18 11:54 IMPRESSION: 1. Examination is limited due to overlying bowel gas and body habitus. Within this limitation, normal ultrasound appearance of the kidneys. No evidence of hydronephrosis. 2. Unremarkable ultrasound appearance of the partially distended urinary bladder. The bilateral urinary jets are nonvisualized, possibly due to exam limitations. Qualifiers - * PATIENT BEING DISCHARGED WITH ANY OF THE FOLLOWING DIAGNOSIS: No
== END 2018-03-28 13:12 | disposition home or self-care (01) | DRG 683 ==
LOC: ER 10:02 → EH 16:01 → 3S 18:16 → 3N 03-22 21:37
PROVIDERS: ADMIT Emergency Medicine; ATTEND Emergency Medicine
PROC: 0DB68ZX Excision of Stomach, Via Natural or Artificial Opening Endoscopic, Diagnostic (ICD-10-PCS; principal; 2018-03-25 11:00)
PROC: 0DBF8ZX Excision of Right Large Intestine, Via Natural or Artificial Opening Endoscopic, Diagnostic (ICD-10-PCS; 2018-03-25 11:00)
PROC: 3E02340 Introduction of Influenza Vaccine into Muscle, Percutaneous Approach (ICD-10-PCS; 2018-03-28)
DX: N17.9 Acute kidney failure, unspecified (principal); I16.1 Hypertensive emergency; Z68.42 Body mass index [BMI] 45.0-49.9, adult; N25.81 Secondary hyperparathyroidism of renal origin; I12.9 Hypertensive chronic kidney disease with stage 1 through stage 4 chronic kidney disease, or unspecified chronic kidney disease; E66.01 Morbid (severe) obesity due to excess calories; K29.70 Gastritis, unspecified, without bleeding; K59.03 Drug induced constipation; T46.2X5A Adverse effect of other antidysrhythmic drugs, initial encounter; D63.1 Anemia in chronic kidney disease; R80.1 Persistent proteinuria, unspecified; D50.9 Iron deficiency anemia, unspecified; R73.9 Hyperglycemia, unspecified; K64.8 Other hemorrhoids; K57.30 Diverticulosis of large intestine without perforation or abscess without bleeding; N18.3 Chronic kidney disease, stage 3 (moderate); E83.39 Other disorders of phosphorus metabolism; E55.9 Vitamin D deficiency, unspecified; Z23 Encounter for immunization; Z79.899 Other long term (current) drug therapy; Z79.82 Long term (current) use of aspirin; Z91.013 Allergy to seafood; Z83.3 Family history of diabetes mellitus; Z82.49 Family history of ischemic heart disease and other diseases of the circulatory system
CPT/HCPCS: 36415; 43239; 45380; 74022; 74176; 76770; 80048; 80053; 80061; 80307; 81001; 813; 82272; 82306; 82397; 82550; 82570; 82607; 82728; 82746; 82962; 83036; 83540; 83550; 83690; 83735; 83970; 84100; 84156; 84165; 84443; 84484; 85025; 85045; 87040; 87086; 88305; 88342; 90686; 93005; 93010; 93306; 93976; 96361; 96374; 96375; 96376; 99285; J0360; J1100; J1650; J2405; J2704; J3490; J7030; J7120; S0119

== ENCOUNTER → 2018-05-06 | Outpatient (CLI) | payer OTHER ==
[2018-05-06 11:08] LABS: ABSOLUTE BASOPHILS # (AUTO) 0.1 10^3/uL (0.0-0.2); ABSOLUTE EOSINOPHILS # (AUTO) 0.2 10^3/uL (0.0-0.6); ABSOLUTE MONOCYTES (AUTO) 0.7 10^3/uL (0.1-1.4); ABSOLUTE NEUT (AUTO) 5.5 10^3/uL (1.7-8.2); EOSINOPHILS % (AUTO) 2.3 % (0-6); HEMATOCRIT 35.3 % (37.9-51.0); HEMOGLOBIN 11.2 g/dL (13.5-17.0); LYMPHOCYTES % (AUTO) 31.3 % (13-45); MEAN CORPUSCULAR HEMOGLOBIN 26.5 pg (27.0-33.4); MEAN CORPUSCULAR HGB CONC 31.9 g/dL (32.0-36.0); MEAN CORPUSCULAR VOLUME 83 fl (80-97); MONOCYTES % (AUTO) 7.2 % (3-13); PLATELET COUNT 459 10^3/uL (150-450); RED BLOOD COUNT 4.24 10^6/uL (4.35-5.55); RED CELL DISTRIBUTION WIDTH 13.1 % (11.5-14.0); SEGMENTED NEUTROPHILS % (AUTO) 58.2 % (42-78); TOTAL CELLS COUNTED % (AUTO) 100 %; WHITE BLOOD COUNT 9.5 10^3/uL (4.0-10.5)
[2018-05-06 11:17] LABS: APPEARANCE,URINE CLOUDY; BILIRUBIN,URINE NEGATIVE (NEGATIVE); COLOR,URINE YELLOW; GLUCOSE, URINE NEGATIVE (NEGATIVE); KETONES,URINE NEGATIVE (NEGATIVE); LEUKOCYTE ESTERASE,URINE LARGE (NEGATIVE); NITRITE,URINE NEGATIVE (NEGATIVE); PROTEIN,URINE >=500 mg/dL (NEGATIVE); UROBILINOGEN,URINE NEGATIVE mg/dL (<2.0)
[2018-05-06 11:25] LABS: ALBUMIN 4.5 g/dL (3.5-5.0); ANION GAP 11 (5-19); BLOOD UREA NITROGEN 30 mg/dL (7-20); CALCIUM 10.1 mg/dL (8.4-10.2); CARBON DIOXIDE 27 mmol/L (22-30); CHLORIDE 102 mmol/L (98-107); GLUCOSE 98 mg/dL (75-110); PHOSPHORUS 4.4 mg/dL (2.5-4.5); POTASSIUM 4.3 mmol/L (3.6-5.0); SODIUM 140.4 mmol/L (137-145)
[2018-05-06 14:30] LABS: URINE PROTEIN 648.6 mg/dL (<12)
[2018-05-06 15:14] LABS: UR PRO/CREAT RATIO RESULT 1.3 mg/mg (0.0-0.2); URINE CREATININE 491.8 mg/dL (24-392)
== END ==
LOC: OD 10:14
PROVIDERS: ATTEND Internal Medicine Nephrology
DX: I12.9 Hypertensive chronic kidney disease with stage 1 through stage 4 chronic kidney disease, or unspecified chronic kidney disease (principal); N18.5 Chronic kidney disease, stage 5; D64.9 Anemia, unspecified
CPT/HCPCS: 36415; 80048; 81001; 82040; 82306; 82570; 83970; 84100; 84156; 85025

== ENCOUNTER → 2018-05-12 | Outpatient (CLI) | payer OTHER | LOC: OD 10:44 | PROVIDERS: ATTEND Internal Medicine Nephrology | DX: I12.9 Hypertensive chronic kidney disease with stage 1 through stage 4 chronic kidney disease, or unspecified chronic kidney disease (principal); N18.4 Chronic kidney disease, stage 4 (severe); R80.9 Proteinuria, unspecified; N39.0 Urinary tract infection, site not specified | CPT/HCPCS: 87086 ==

== ENCOUNTER → 2018-08-14 | Outpatient (CLI) | payer OTHER ==
[2018-08-14 10:40] LABS: ABSOLUTE EOSINOPHILS # (AUTO) 0.1 10^3/uL (0.0-0.6); ABSOLUTE LYMPHOCYTES (AUTO) 2.8 10^3/uL (0.5-4.7); ABSOLUTE MONOCYTES (AUTO) 0.6 10^3/uL (0.1-1.4); ABSOLUTE NEUT (AUTO) 3.1 10^3/uL (1.7-8.2); BASOPHILS % (AUTO) 0.7 % (0-2); EOSINOPHILS % (AUTO) 2.1 % (0-6); HEMATOCRIT 33.8 % (37.9-51.0); LYMPHOCYTES % (AUTO) 42.1 % (13-45); MEAN CORPUSCULAR HEMOGLOBIN 27.4 pg (27.0-33.4); MEAN CORPUSCULAR HGB CONC 32.5 g/dL (32.0-36.0); MEAN CORPUSCULAR VOLUME 84 fl (80-97); MONOCYTES % (AUTO) 9.2 % (3-13); PLATELET COUNT 352 10^3/uL (150-450); RED BLOOD COUNT 4.01 10^6/uL (4.35-5.55); RED CELL DISTRIBUTION WIDTH 13.3 % (11.5-14.0); SEGMENTED NEUTROPHILS % (AUTO) 45.9 % (42-78); TOTAL CELLS COUNTED % (AUTO) 100 %; WHITE BLOOD COUNT 6.7 10^3/uL (4.0-10.5)
[2018-08-14 10:56] LABS: APPEARANCE,URINE SLIGHTLY-CLOUDY; BILIRUBIN,URINE NEGATIVE (NEGATIVE); COLOR,URINE YELLOW; GLUCOSE, URINE NEGATIVE (NEGATIVE); KETONES,URINE NEGATIVE (NEGATIVE); LEUKOCYTE ESTERASE,URINE MODERATE (NEGATIVE); NITRITE,URINE NEGATIVE (NEGATIVE); PROTEIN,URINE 100 mg/dL (NEGATIVE); URINE SPECIFIC GRAVITY 1.014; UROBILINOGEN,URINE NEGATIVE mg/dL (<2.0)
[2018-08-14 10:57] LABS: ANION GAP 16 (5-19); BLOOD UREA NITROGEN 43 mg/dL (7-20); CALCIUM 10.4 mg/dL (8.4-10.2); CARBON DIOXIDE 25 mmol/L (22-30); CHLORIDE 100 mmol/L (98-107); GLUCOSE 94 mg/dL (75-110); PHOSPHORUS 4.7 mg/dL (2.5-4.5); POTASSIUM 4.8 mmol/L (3.6-5.0); SODIUM 141.1 mmol/L (137-145)
[2018-08-14 11:11] LABS: UR PRO/CREAT RATIO RESULT 0.3 mg/mg (0.0-0.2); URINE CREATININE 226.2 mg/dL (24-392); URINE PROTEIN 76.5 mg/dL (<12)
== END ==
LOC: OD 09:55
PROVIDERS: ATTEND Internal Medicine Nephrology
DX: I12.9 Hypertensive chronic kidney disease with stage 1 through stage 4 chronic kidney disease, or unspecified chronic kidney disease (principal); N18.4 Chronic kidney disease, stage 4 (severe); R80.9 Proteinuria, unspecified; E55.9 Vitamin D deficiency, unspecified
CPT/HCPCS: 36415; 80069; 81001; 82088; 82306; 82533; 82570; 83835; 83970; 84156; 84244; 84443; 85025

== ENCOUNTER 2019-01-29 00:20 | Emergency (ER) | payer OTHER, BC ==
[2019-01-29] MEDS ORDERED: ONDANSETRON 4 MG TAB.RAPDIS PO ONE (01:03)
[2019-01-29] MEDS ORDERED: OXYCODONE-ACETAMINOPHEN 5-325 MG TABLET PO ONE (01:03)
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
[2019-01-29 02:14] LABS: APPEARANCE,URINE SLIGHTLY-CLOUDY; BILIRUBIN,URINE NEGATIVE (NEGATIVE); COLOR,URINE YELLOW; GLUCOSE, URINE NEGATIVE (NEGATIVE); KETONES,URINE NEGATIVE (NEGATIVE); LEUKOCYTE ESTERASE,URINE SMALL (NEGATIVE); NITRITE,URINE NEGATIVE (NEGATIVE); PROTEIN,URINE 100 mg/dL (NEGATIVE); URINE SPECIFIC GRAVITY 1.015; UROBILINOGEN,URINE NEGATIVE mg/dL (<2.0)
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
[2019-01-29] MEDS ORDERED: HYDROCODONE/ACETAMINOPHEN 5-325 MG (6 TAB/ER DISP) PO PRN (02:43)
[2019-01-29 02:55] VITALS: BP 160/90
== END 2019-01-29 02:53 | disposition home or self-care (01) ==
LOC: ER 00:20
DX: R10.30 Lower abdominal pain, unspecified (principal); M54.9 Dorsalgia, unspecified; V49.50XA Passenger injured in collision with unspecified motor vehicles in traffic accident, initial encounter; I10 Essential (primary) hypertension
CPT/HCPCS: 99284; 87086; 81001; 74176; L0172 ×2; L0120; S0119

== ENCOUNTER → 2019-02-22 | Outpatient (CLI) | payer OTHER ==
[2019-02-22 09:58] LABS: ABSOLUTE BASOPHILS # (AUTO) 0.1 10^3/uL (0.0-0.2); ABSOLUTE EOSINOPHILS # (AUTO) 0.2 10^3/uL (0.0-0.6); ABSOLUTE LYMPHOCYTES (AUTO) 2.2 10^3/uL (0.5-4.7); ABSOLUTE NEUT (AUTO) 5.1 10^3/uL (1.7-8.2); BASOPHILS % (AUTO) 0.7 % (0-2); EOSINOPHILS % (AUTO) 2.1 % (0-6); HEMATOCRIT 34.1 % (37.9-51.0); HEMOGLOBIN 10.9 g/dL (13.5-17.0); LYMPHOCYTES % (AUTO) 25.7 % (13-45); MEAN CORPUSCULAR HEMOGLOBIN 27.5 pg (27.0-33.4); MEAN CORPUSCULAR HGB CONC 31.8 g/dL (32.0-36.0); MEAN CORPUSCULAR VOLUME 87 fl (80-97); MONOCYTES % (AUTO) 11.7 % (3-13); PLATELET COUNT 325 10^3/uL (150-450); RED BLOOD COUNT 3.94 10^6/uL (4.35-5.55); RED CELL DISTRIBUTION WIDTH 12.7 % (11.5-14.0); SEGMENTED NEUTROPHILS % (AUTO) 59.8 % (42-78); TOTAL CELLS COUNTED % (AUTO) 100 %; WHITE BLOOD COUNT 8.6 10^3/uL (4.0-10.5)
[2019-02-22 09:59] LABS: APPEARANCE,URINE SLIGHTLY-CLOUDY; BILIRUBIN,URINE NEGATIVE (NEGATIVE); COLOR,URINE YELLOW; GLUCOSE, URINE NEGATIVE (NEGATIVE); KETONES,URINE NEGATIVE (NEGATIVE); LEUKOCYTE ESTERASE,URINE MODERATE (NEGATIVE); NITRITE,URINE NEGATIVE (NEGATIVE); PROTEIN,URINE 30 mg/dL (NEGATIVE); URINE SPECIFIC GRAVITY 1.017; UROBILINOGEN,URINE NEGATIVE mg/dL (<2.0)
[2019-02-22 10:25] LABS: ALBUMIN 4.6 g/dL (3.5-5.0); ANION GAP 13 (5-19); BLOOD UREA NITROGEN 41 mg/dL (7-20); CARBON DIOXIDE 25 mmol/L (22-30); CHLORIDE 102 mmol/L (98-107); GLUCOSE 92 mg/dL (75-110); PHOSPHORUS 4.9 mg/dL (2.5-4.5); POTASSIUM 4.7 mmol/L (3.6-5.0)
[2019-02-22 10:37] LABS: UR PRO/CREAT RATIO RESULT 0.2 mg/mg (0.0-0.2); URINE CREATININE 235.5 mg/dL (24-392); URINE PROTEIN 38.2 mg/dL (<12)
== END ==
LOC: OD 09:18
PROVIDERS: ATTEND Internal Medicine Nephrology
DX: I12.9 Hypertensive chronic kidney disease with stage 1 through stage 4 chronic kidney disease, or unspecified chronic kidney disease (principal); N18.4 Chronic kidney disease, stage 4 (severe); D63.1 Anemia in chronic kidney disease; N25.81 Secondary hyperparathyroidism of renal origin
CPT/HCPCS: 36415; 80069; 81001; 82306; 82570; 83970; 84156; 85025

== ENCOUNTER → 2019-05-25 | Outpatient (CLI) | payer BC ==
[2019-05-25 11:17] LABS: ABSOLUTE BASOPHILS # (AUTO) 0.1 10^3/uL (0.0-0.2); ABSOLUTE EOSINOPHILS # (AUTO) 0.1 10^3/uL (0.0-0.6); ABSOLUTE LYMPHOCYTES (AUTO) 2.7 10^3/uL (0.5-4.7); ABSOLUTE MONOCYTES (AUTO) 0.7 10^3/uL (0.1-1.4); ABSOLUTE NEUT (AUTO) 3.4 10^3/uL (1.7-8.2); BASOPHILS % (AUTO) 0.8 % (0-2); EOSINOPHILS % (AUTO) 1.2 % (0-6); HEMATOCRIT 37.2 % (37.9-51.0); HEMOGLOBIN 11.9 g/dL (13.5-17.0); LYMPHOCYTES % (AUTO) 38.6 % (13-45); MEAN CORPUSCULAR HEMOGLOBIN 27.5 pg (27.0-33.4); MEAN CORPUSCULAR HGB CONC 32.1 g/dL (32.0-36.0); MEAN CORPUSCULAR VOLUME 86 fl (80-97); MONOCYTES % (AUTO) 10.1 % (3-13); PLATELET COUNT 334 10^3/uL (150-450); RED BLOOD COUNT 4.35 10^6/uL (4.35-5.55); RED CELL DISTRIBUTION WIDTH 13.1 % (11.5-14.0); SEGMENTED NEUTROPHILS % (AUTO) 49.3 % (42-78); TOTAL CELLS COUNTED % (AUTO) 100 %
[2019-05-25 11:34] LABS: ALBUMIN 4.8 g/dL (3.5-5.0); ANION GAP 16 (5-19); BLOOD UREA NITROGEN 33 mg/dL (7-20); CALCIUM 10.3 mg/dL (8.4-10.2); CARBON DIOXIDE 24 mmol/L (22-30); CHLORIDE 100 mmol/L (98-107); GLUCOSE 85 mg/dL (75-110); PHOSPHORUS 4.2 mg/dL (2.5-4.5)
[2019-05-25 11:55] LABS: UR PRO/CREAT RATIO RESULT 0.1 mg/mg (0.0-0.2); URINE CREATININE 282.1 mg/dL (24-392); URINE PROTEIN 39.2 mg/dL (<12)
== END ==
LOC: OD 10:24
PROVIDERS: ATTEND Internal Medicine Nephrology
DX: I12.9 Hypertensive chronic kidney disease with stage 1 through stage 4 chronic kidney disease, or unspecified chronic kidney disease (principal); N18.4 Chronic kidney disease, stage 4 (severe); D63.1 Anemia in chronic kidney disease; R80.9 Proteinuria, unspecified
CPT/HCPCS: 36415; 80069; 82570; 83970; 84156; 85025

== ENCOUNTER → 2019-05-28 | Outpatient (CLI) | payer BC ==
--- NOTE | 2019-05-28 14:25 | RADIOLOGY REPORT (SQ) ---
EXAM DESCRIPTION: CT ABDOMEN ORAL CONTRAST ONLY COMPLETED DATE/TIME: 05/28/2019 9:26 am REASON FOR STUDY: E26.9 HYPERALDOSTERONISM, UNSPECIFIED E26.9 HYPERALDOSTERONISM, UNSPECIFIED COMPARISON: CT of the abdomen and pelvis without contrast from 01/29/2019. TECHNIQUE: CT scan of the abdomen performed without intravenous contrast and with oral contrast. Im ages reviewed with lung, soft tissue, and bone windows. Reconstructed coronal and sagittal MPR image s reviewed. All images stored on PACS. All CT scanners at this facility use dose modulation, iterative reconstruction, and/or weight based d osing when appropriate to reduce radiation dose to as low as reasonably achievable (ALARA). [facility]: Dose Right [facility]: CareDose [facility]: Dose Right [facility]: Teradose 4D [facility]: Cellectar RADIATION DOSE: CT Rad equipment meets quality standard of care and radiation dose reduction techniq ues were employed. CTDIvol: 19.0 mGy. DLP: 798 mGy-cm. LIMITATIONS: None. FINDINGS: LOWER CHEST: No acute findings. NONCONTRASTED LIVER, SPLEEN, ADRENALS: Evaluation is limited due to the absence of interest venous co ntrast. The morphology of the liver is non cirrhotic. There is no CT evidence of hepatic steatosis. The spleen is normal in size. There is no adrenal mass. PANCREAS: No acute abnormality. GALLBLADDER: No abnormality that is apparent on CT. RIGHT KIDNEY AND URETER: Evaluation is limited due to the absence of intravenous contrast. There is no hydronephrosis or nephrolithiasis. LEFT KIDNEY AND URETER: Evaluation is limited due to the absence of intravenous contrast. There is n o hydronephrosis or nephrolithiasis. AORTA AND RETROPERITONEUM: No aneurysm of the abdominal aorta. No retroperitoneal adenopathy, hemorr bia or mass. BOWEL AND PERITONEAL CAVITY: No acute findings. APPENDIX: Normal. ABDOMINAL WALL: No abnormality. BONES: No acute findings. OTHER: No other finding. IMPRESSION: No acute intra-abdominal abnormality. No adrenal mass. TECHNICAL DOCUMENTATION: JOB ID: [id number] Quality ID # [id number]: Final reports with documentation of one or more dose reduction techniques (e.g., Au tomated exposure control, adjustment of the mA and/or kV according to patient size, use of iterative reconstruction technique) 2010 [employer]- All Rights Reserved Reading location - IP[facility]workstation name: [email or web address]
== END ==
LOC: RAD 09:10
PROVIDERS: ATTEND Internal Medicine Nephrology
DX: E26.9 Hyperaldosteronism, unspecified (principal)
CPT/HCPCS: 74150